=== PATIENT | male | born 1940 | race Caucasian/White ===

== ENCOUNTER 2023-09-30 19:33 | Observation (INO) ==
[2023-09-30 20:12] LABS: Basophils # (auto) 0.03 K/uL (0.00-0.20); Basophils % (auto) 0.4 %; Eosinophils # (auto) 0.82 K/uL (0.00-0.50); Eosinophils % (auto) 11.3 %; Hematocrit (blood only) 39.8 % (42.0-52.0); Hemoglobin 13.4 g/dl (14.0-18.0); Immature Granulocytes # (auto) 0.02 K/uL (0.01-0.20); Immature Granulocytes % (auto) 0.3 %; Lymphocytes # (auto) 1.56 K/uL (1.20-3.40); Lymphocytes % (auto) 21.5 %; Mean Corpuscular Hemoglobin 29.5 pg (25.0-34.0); Mean Corpuscular Hgb Conc 33.7 g/dL (32.0-36.0); Mean Corpuscular Volume 87.7 fL (80.0-100.0); Mean Platelet Volume 9.2 fL (9.4-12.4); Monocytes # (auto) 0.77 K/uL (0.11-0.59); Monocytes % (auto) 10.6 %; Neutrophils # (auto) 4.05 K/uL (1.40-6.50); Neutrophils % (auto) 55.9 %; Platelet Count 199 K/uL (130-400); RDW Coefficient of Variation 14.4 % (11.5-14.5); RDW Standard Deviation 46.1 fL (36.4-46.3); Red Blood Count 4.54 M/uL (4.70-6.10); White Blood Count 7.25 K/ul (4.8-10.8)
[2023-09-30] MEDS ORDERED: OPTIRAY 320 125ml IV ONE (20:22)
[2023-09-30 20:28] LABS: Albumin Globulin Ratio 1.4 (0.9-2); Albumin Level 4.1 gm/dl (3.4-5.0); BUN Creatinine Ratio 17.9 (10-20); Bilirubin,Total 0.3 mg/dl (0.2-1.0); Calcium 8.8 mg/dl (8.6-10.3); Creatinine Clr Calc Pharmacy 28.9 ml/min; Est GFR (African American) 30.7 ml/min; Est GFR (Non-African American) 26.5 ml/min; Potassium 3.3 mmol/L (3.5-5.1); Total Protein 7.1 gm/dl (6.0-8.3)
--- NOTE | 2023-09-30 20:34 | CT Scan Report ---
CT SCAN OF THE BRAIN WITHOUT IV CONTRAST CLINICAL HISTORY: Neurological deficit. Stroke like symptoms. COMPARISON STUDY: No priors. TECHNIQUE: Unenhanced axial CT scan of the brain is performed from the vertex to the skull base. A do se lowering technique was utilized adhering to the principles of ALARA. 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 There is no hemorrhage, mass effect, or evidence of acute territorial isc hemia by CT criteria. Hernandez-white matter differentiation is preserved. No extra-axial fluid collection is seen. Ventricles, sulci, cisterns: Prominent secondary to involutional change. Intracranial vasculature: There is atherosclerotic calcification of the cavernous carotid arteries. Calvarium: Unremarkable. Sinuses and mastoids: The visualized paranasal sinuses are clear. The mastoid air cells are well pneu matized. Orbits: The bony orbits are grossly intact. IMPRESSION: There is no hemorrhage, mass effect, or evidence of acute territorial ischemia by CT maria g ramos. ACT 112: Negative or not required by law. Electronically signed by: Nathan Linn M.D. 09/30/2023 8:33 PM
[2023-09-30 20:39] LABS: INR 0.9 (0.9-1.1); Partial Thromboplastin Time 27 Seconds (21-31); Prothrombin Time 10.4 Seconds (9.0-12.0)
--- NOTE | 2023-09-30 20:45 | CT Scan Report ---
CT ANGIOGRAM OF THE BRAIN; CT ANGIOGRAM OF THE NECK CLINICAL HISTORY: Neurological deficit. Stroke like symptoms. COMPARISON STUDY: Unenhanced CT of the brain performed concurrently on 09/30/2023. TECHNIQUE: Following the IV administration of 119 of Optiray 320, CT angiogram of the head and neck w as performed from the aortic arch to the vertex. Images are reviewed in the axial, sagittal, and tylor nal planes. 3-D MIPS images are created and assessed. IV contrast was administered without complicati on. All measurements were calculated based on NASCET criteria. A dose lowering technique was utilize d adhering to the principles of ALARA. 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 There is no evidence of hemorrhage, mass effect, or acute territorial isc hemia by CT criteria noting angiographic phase technique. There is no evidence of enhancing mass lesi on on the angiogram phase images. The ventricles, sulci, and cisterns are prominent secondary to surg ical change. Hernandez-white matter differentiation is preserved. No extra-axial fluid collection is seen. Thoracic aorta: There is mild atherosclerotic calcification of the thoracic aorta. Visualized portion s of the thoracic aorta are normal in caliber. The aortic arch demonstrates 3-vessel variant anatomy. There is a bovine arch, and the left vertebral artery arises directly from the thoracic aorta. Right carotid arterial system: The right common carotid artery is widely patent, as are the right int ernal and external carotid arteries. Calcified plaque is noted in the right carotid bulb and ICA. Left carotid arterial system: The left common carotid artery is widely patent, as is the left interna l carotid artery. Minimal plaque is seen in the carotid bulb. There is mild stenosis at the origin of the left external carotid artery. Vertebral arteries: The vertebral arteries are widely patent bilaterally and codominant. Subclavian arteries: Widely patent bilaterally. Intracranial vasculature: There is atherosclerotic calcification of the cavernous carotid arteries. T he internal carotid arteries are patent at the skull base, as are the anterior and middle cerebral ar teries bilaterally. The vertebrobasilar system and posterior cerebral arteries are widely patent. The vertebral arteries are codominant. There is no aneurysm, high-grade stenosis, or focal vessel cut of f seen throughout the intracranial circulation. Jugular veins: Patent bilaterally. Dural sinuses: Patent. Lung apices: Partially visualized upper lobe lung parenchyma appears clear. Soft tissues: The visualized pharyngeal soft tissues are normal in appearance noting angiographic pha se technique. The oropharyngeal airway appears widely patent. The salivary and thyroid glands are nor mal in appearance. No cervical lymphadenopathy is seen. Skeletal structures: The skeletal structures are osteopenic. The calvarium appears intact. The cervic al spine is maintained noting multilevel spondylosis. Orbits: The bony orbits are intact. Orbital contents are normal as visualized. Sinuses and mastoids: There is trace mucosal thickening in the right maxillary antrum. The remaining paranasal sinuses are clear. The mastoid air cells are well pneumatized. IMPRESSION: 1. There is no evidence of hemorrhage, mass effect, or acute territorial ischemia by CT criteria noti ng angiographic phase technique. 2. Unremarkable CT angiogram of the brain. 3. Unremarkable CT angiogram of the neck. ACT 112: Negative or not required by law. Electronically signed by: Nathan Linn M.D. 09/30/2023 8:43 PM
[2023-09-30] MEDS ORDERED: POTASSIUM CHLORIDE CRTAB 20 MEQ TABCR PO STA (22:23)
[2023-09-30] MEDS ORDERED: NSS + 20MEQ KCL 20 MEQ/1,000 ML BAG IV STA (22:28)
[2023-09-30 22:38] LABS: Appearance Urine Clear (Clear); Bilirubin Urine Negative (Negative); Blood Urine Negative (Negative); Color Urine Yellow; Glucose Urine UA 3+ (Negative); Ketones Urine Negative (Negative); Leukocyte Esterase Urine Negative (Negative); Nitrite Urine Negative (Negative); Protein Urine Negative (Negative); Specific Gravity Urine 1.033 (1.000-1.030); Urobilinogen Urine Negative (Negative)
--- NOTE | 2023-09-30 22:48 | Emergency Department Note ---
Impression & Plan Slurred speech, Decreased sensation, Generalized weakness ED Provider Note Diagnosis: Generalized weakness, slurred speech, decreased sensation Disposition: Admission CHIEF COMPLAINT: Generalized weakness HPI: Patient is an 83-year-old male presenting with generalized weakness. Patient states for the past 1 to 2 weeks time he has not felt himself. Patient states at times he feels lightheaded like he is going to pass out and the symptoms are intermittent. Patient states acutely at 6:30 PM this evening after dinner he developed slurred speech and the symptoms became worse of he describes dizziness which he states is lightheadedness. Patient denies any room spinning sensation. Patient has not any blood thinners except aspirin and has not had any previous strokes. Patient was originally seen in triage and workup was placed for near syncope generalized weakness and upon my evaluation due to the decrease sensation to the left arm left leg with acute slurred speech that started within 4 hours I activated a stroke alert. PAST MEDICAL HISTORY: See Below PAST SURGICAL HISTORY: See Below SOCIAL HISTORY: See Below HOME MEDICATIONS: See Below ALLERGIES: See Below VITALS: See Below PHYSICAL EXAMINATION: GENERAL: Well appearing, well nourished, NAD, non-toxic. EYE EXAM: Normal conjunctiva. OROPHARYNX: Moist mucus membranes. Grossly normal dentition. NECK: Supple, LUNGS: Clear to auscultation. Normal chest wall mechanics. HEART: NSR ABDOMEN: Abdomen soft, non-tender, normo-active bowel sounds, no masses, no rebound or guarding BACK: No CVA TTP. SKIN: No rashes and no bruising. UPPER EXTREMITIES: Upper extremities are grossly normal LOWER EXTREMITIES: Grossly normal, no edema. NEURO EXAM: A&O x3,, slurred speech, decreased sensation left arm and left leg, 5 out of 5 muscle strength upper and lower extremities bilaterally, no facial droop PSYCH: Cooperative MEDICAL DECISION MAKING: Reviewed external documents: History obtained from: Patient, ER Course: Patient is a 83-year-old male presenting with generalized weakness for 1 to 2 weeks time. Patient states he feels lightheaded like his can pass out at times. Patient states symptoms are intermittent. Patient states acutely at 6:30 PM this evening started with worsening generalized weakness lightheadedness as well as slurred speech and came in for further evaluation. Patient was seen in triage and initially window of symptoms was thought to be 1 to 2 weeks. I was asked to come evaluate the patient approximately 35 minutes into his stay and found that he did not have any muscle strength deficits however he did have left arm and left leg decree sensation as well as some lingering slurred speech but per the had improved. Patient was acutely activated as a stroke upon my assessment. Patient taken over to CAT scan and found to not have any intracranial hemorrhage or large vessel occlusions. Patient seen by her she neurology team on tele of visit. Due to patient's NIH being 2 and foggy story of when symptoms completely started neurologist does not recommend TNK at this time. Recommends admission to the hospital for further workup and potential MRI of the brain. Patient in agreement with this plan. Labs (independently interpreted) are significant for: No leukocytosis no significant electrolyte abnormalities Imaging results (independently interpreted): Chest x-ray clear EKG interpretation (independently interpreted): Sinus rhythm no ST segment elevation or depressions normal intervals, EKG bedside not in computer system yet Consultants: Telestroke team Claire, hospitalist. Triage Nursing notes reviewed and agree them. Vital Signs: reviewed and remarkable for: no significant abnormalities Past Med/Surg History Social History Smoking Status: Never smoker Preferred Language: Micronesian Feels Safe at Home: Yes Allergies Allergies Allergy/AdvReac Type Severity Reaction Status Date / Time codeine Allergy Swelling Verified 09/30/23 23:11 of Lip/Tongue/Throat Home Meds Home Medications Medication Instructions Recorded Confirmed lisdexamfetamine 70 mg capsule 70 mg PO QAM 08/27/20 09/30/23 (Vyvanse) alogliptin 12.5 mg tablet 6.25 mg PO DAILY 03/24/22 09/30/23 atorvastatin 80 mg tablet 80 mg PO DAILY 03/24/22 09/30/23 chlorthalidone 50 mg tablet 50 mg PO DAILY 03/24/22 09/30/23 empagliflozin 25 mg tablet 25 mg PO DAILY 03/24/22 09/30/23 glimepiride 2 mg tablet 2 mg PO DAILY 03/24/22 09/30/23 imatinib 400 mg tablet (Gleevec) 200 mg PO DAILY 03/24/22 09/30/23 pioglitazone 30 mg tablet 30 mg PO DAILY 03/24/22 09/30/23 allopurinol 100 mg tablet 100 mg PO DAILY 09/30/23 09/30/23 alprazolam 0.5 mg tablet 0.5 mg PO HS PRN Anxiety 09/30/23 09/30/23 dulaglutide 1.5 mg/0.5 mL 1.5 mg subcut WK 09/30/23 09/30/23 subcutaneous pen injector (Trulicity) losartan 25 mg tablet 25 mg PO DAILY 09/30/23 09/30/23 methylphenidate HCl 20 mg tablet 20 mg PO TID 09/30/23 09/30/23 sertraline 100 mg tablet 50 - 100 mg PO HS 09/30/23 09/30/23 trazodone 100 mg tablet 100 mg PO HS 09/30/23 09/30/23 Results & Data (ED) Vital Signs Vital Signs - 24 hr 09/30/23 19:39 09/30/23 20:24 09/30/23 20:37 Temperature 36.8 C Temperature Source Temporal Artery Scan Pulse Rate 87 70 Pulse Rate [Apical] 74 Pulse Rate from SpO2 Sensor Pulse Rhythm Regular Pulse Strength Normal Respiratory Rate 19 14 Respiratory Effort / Characteristics Non-Labored Spontaneous Non-Labored Spontaneous Respiratory Depth Normal Normal Respiratory Pattern Regular Blood Pressure 117/65 Blood Pressure [Right Arm] 126/58 L Blood Pressure Mean 82 Blood Pressure Mean [Right Arm] 80 Blood Pressure Position Sitting Pulse Oximetry 96 95 Oxygen Delivery Method Room Air Room Air Sepsis Recent Fever Within 48 Hours No Sepsis New/Unexplained Change in Mental Status N/A Sepsis Action Taken by Nursing No Action Required 09/30/23 20:37 09/30/23 21:00 09/30/23 21:30 Temperature Temperature Source Pulse Rate 66 74 70 Pulse Rate [Apical] Pulse Rate from SpO2 Sensor 66 73 68 Pulse Rhythm Pulse Strength Respiratory Rate 16 15 12 Respiratory Effort / Characteristics Respiratory Depth Respiratory Pattern Blood Pressure Blood Pressure [Right Arm] Blood Pressure Mean Blood Pressure Mean [Right Arm] Blood Pressure Position Pulse Oximetry 98 97 97 Oxygen Delivery Method Sepsis Recent Fever Within 48 Hours Sepsis New/Unexplained Change in Mental Status Sepsis Action Taken by Nursing 09/30/23 22:51 09/30/23 22:51 09/30/23 23:00 Temperature Temperature Source Pulse Rate 67 66 Pulse Rate [Apical] Pulse Rate from SpO2 Sensor 67 67 Pulse Rhythm Pulse Strength Respiratory Rate 13 12 Respiratory Effort / Characteristics Respiratory Depth Respiratory Pattern Blood Pressure 133/74 144/75 H Blood Pressure [Right Arm] Blood Pressure Mean 84 98 Blood Pressure Mean [Right Arm] Blood Pressure Position Pulse Oximetry 97 94 Oxygen Delivery Method Sepsis Recent Fever Within 48 Hours Sepsis New/Unexplained Change in Mental Status Sepsis Action Taken by Nursing 10/01/23 00:39 Temperature Temperature Source Pulse Rate 64 Pulse Rate [Apical] Pulse Rate from SpO2 Sensor Pulse Rhythm Pulse Strength Respiratory Rate Respiratory Effort / Characteristics Respiratory Depth Respiratory Pattern Blood Pressure Blood Pressure [Right Arm] Blood Pressure Mean Blood Pressure Mean [Right Arm] Blood Pressure Position Pulse Oximetry Oxygen Delivery Method Sepsis Recent Fever Within 48 Hours Sepsis New/Unexplained Change in Mental Status Sepsis Action Taken by Nursing Laboratory Data 10/01/23 00:37 09/30/23 19:55 Lab Results 09/30/23 09/30/23 09/30/23 Range/Units 19:55 19:55 19:55 WBC 7.25 (4.8-10.8) K/ul RBC 4.54 L (4.70-6.10) M/uL Hgb 13.4 L (14.0-18.0) g/dl Hct 39.8 L (42.0-52.0) % MCV 87.7 (80.0-100.0) fL MCH 29.5 (25.0-34.0) pg MCHC 33.7 (32.0-36.0) g/dL RDW Std Deviation 46.1 (36.4-46.3) fL RDW Coeff of Delaney 14.4 (11.5-14.5) % Plt Count 199 (130-400) K/uL MPV 9.2 L (9.4-12.4) fL Immature Gran % (Auto) 0.3 % Neut % (Auto) 55.9 % Lymph % (Auto) 21.5 % [facility] % (Auto) 10.6 % Eos % (Auto) 11.3 % Baso % (Auto) 0.4 % Neut # (Auto) 4.05 (1.40-6.50) K/uL Lymph # (Auto) 1.56 (1.20-3.40) K/uL [facility] # (Auto) 0.77 H (0.11-0.59) K/uL Eos # (Auto) 0.82 H (0.00-0.50) K/uL Baso # (Auto) 0.03 (0.00-0.20) K/uL Immature Gran # (Auto) 0.02 (0.01-0.20) K/uL PT 10.4 Cancelled (9.0-12.0) Seconds INR 0.9 Cancelled (0.9-1.1) APTT 27 (21-31) Seconds PTT Ratio 1.0 Sodium 132 L (136-145) mmol/L Potassium 3.3 L (3.5-5.1) mmol/L Chloride 99 (98-107) mmol/L Carbon Dioxide 24 (21-32) mmol/L Anion Gap 9 (3-11) BUN 40 H (6-23) mg/dl Creatinine 2.23 H (0.6-1.4) mg/dl Est Cr Clr Drug Dosing 28.9 ml/min Est GFR ( Amer) 30.7 ml/min Est GFR (Non-Af Amer) 26.5 ml/min BUN/Creatinine Ratio 17.9 (10-20) Glucose 283 H (70-99(Fasting)) mg/dl POC Glucose (70-99) mg/dl Calcium 8.8 (8.6-10.3) mg/dl Magnesium 2.4 (1.7-2.4) mg/dl Total Bilirubin 0.3 (0.2-1.0) mg/dl AST 21 (13-39) U/L ALT 17 (7-52) U/L Alkaline Phosphatase 58 (34-104) U/L Total Protein 7.1 (6.0-8.3) gm/dl Albumin 4.1 (3.4-5.0) gm/dl Globulin 3.0 (2.5-4.0) gm/dl Albumin/Globulin Ratio 1.4 (0.9-2) TSH 2.221 (0.300-4.500) uIu/ml Urine Color Urine Appearance (Clear) Urine pH (4.5-7.5) Ur Specific [place] (1.000-1.030) Urine Protein (Negative) Urine Glucose (UA) (Negative) Urine Ketones (Negative) Urine Blood (Negative) Urine Nitrite (Negative) Urine Bilirubin (Negative) Urine Urobilinogen (Negative) Ur Leukocyte Esterase (Negative) Blood Type Antibody Screen 09/30/23 09/30/23 09/30/23 Range/Units 20:24 20:27 Unknown WBC (4.8-10.8) K/ul RBC (4.70-6.10) M/uL Hgb (14.0-18.0) g/dl Hct (42.0-52.0) % MCV (80.0-100.0) fL MCH (25.0-34.0) pg MCHC (32.0-36.0) g/dL RDW Std Deviation (36.4-46.3) fL RDW Coeff of Delaney (11.5-14.5) % Plt Count (130-400) K/uL MPV (9.4-12.4) fL Immature Gran % (Auto) % Neut % (Auto) % Lymph % (Auto) % [facility] % (Auto) % Eos % (Auto) % Baso % (Auto) % Neut # (Auto) (1.40-6.50) K/uL Lymph # (Auto) (1.20-3.40) K/uL [facility] # (Auto) (0.11-0.59) K/uL Eos # (Auto) (0.00-0.50) K/uL Baso # (Auto) (0.00-0.20) K/uL Immature Gran # (Auto) (0.01-0.20) K/uL PT (9.0-12.0) Seconds INR (0.9-1.1) APTT (21-31) Seconds PTT Ratio Sodium (136-145) mmol/L Potassium (3.5-5.1) mmol/L Chloride (98-107) mmol/L Carbon Dioxide (21-32) mmol/L Anion Gap (3-11) BUN (6-23) mg/dl Creatinine (0.6-1.4) mg/dl Est Cr Clr Drug Dosing ml/min Est GFR ( Amer) ml/min Est GFR (Non-Af Amer) ml/min BUN/Creatinine Ratio (10-20) Glucose (70-99(Fasting)) mg/dl POC Glucose 247 H (70-99) mg/dl Calcium (8.6-10.3) mg/dl Magnesium (1.7-2.4) mg/dl Total Bilirubin (0.2-1.0) mg/dl AST (13-39) U/L ALT (7-52) U/L Alkaline Phosphatase (34-104) U/L Total Protein (6.0-8.3) gm/dl Albumin (3.4-5.0) gm/dl Globulin (2.5-4.0) gm/dl Albumin/Globulin Ratio (0.9-2) TSH (0.300-4.500) uIu/ml Urine Color Yellow Urine Appearance Clear (Clear) Urine pH 5.0 (4.5-7.5) Ur Specific [place] 1.033 H (1.000-1.030) Urine Protein Negative (Negative) Urine Glucose (UA) 3+ H (Negative) Urine Ketones Negative (Negative) Urine Blood Negative (Negative) Urine Nitrite Negative (Negative) Urine Bilirubin Negative (Negative) Urine Urobilinogen Negative (Negative) Ur Leukocyte Esterase Negative (Negative) Blood Type A Positive Antibody Screen NEGATIVE 10/01/23 Range/Units 00:37 WBC (4.8-10.8) K/ul RBC (4.70-6.10) M/uL Hgb 13.3 L (14.0-18.0) g/dl Hct 40.7 L (42.0-52.0) % MCV (80.0-100.0) fL MCH (25.0-34.0) pg MCHC (32.0-36.0) g/dL RDW Std Deviation (36.4-46.3) fL RDW Coeff of Delaney (11.5-14.5) % Plt Count (130-400) K/uL MPV (9.4-12.4) fL Immature Gran % (Auto) % Neut % (Auto) % Lymph % (Auto) % [facility] % (Auto) % Eos % (Auto) % Baso % (Auto) % Neut # (Auto) (1.40-6.50) K/uL Lymph # (Auto) (1.20-3.40) K/uL [facility] # (Auto) (0.11-0.59) K/uL Eos # (Auto) (0.00-0.50) K/uL Baso # (Auto) (0.00-0.20) K/uL Immature Gran # (Auto) (0.01-0.20) K/uL PT (9.0-12.0) Seconds INR (0.9-1.1) APTT (21-31) Seconds PTT Ratio Sodium (136-145) mmol/L Potassium (3.5-5.1) mmol/L Chloride (98-107) mmol/L Carbon Dioxide (21-32) mmol/L Anion Gap (3-11) BUN (6-23) mg/dl Creatinine (0.6-1.4) mg/dl Est Cr Clr Drug Dosing ml/min Est GFR ( Amer) ml/min Est GFR (Non-Af Amer) ml/min BUN/Creatinine Ratio (10-20) Glucose (70-99(Fasting)) mg/dl POC Glucose (70-99) mg/dl Calcium (8.6-10.3) mg/dl Magnesium (1.7-2.4) mg/dl Total Bilirubin (0.2-1.0) mg/dl AST (13-39) U/L ALT (7-52) U/L Alkaline Phosphatase (34-104) U/L Total Protein (6.0-8.3) gm/dl Albumin (3.4-5.0) gm/dl Globulin (2.5-4.0) gm/dl Albumin/Globulin Ratio (0.9-2) TSH (0.300-4.500) uIu/ml Urine Color Urine Appearance (Clear) Urine pH (4.5-7.5) Ur Specific [place] (1.000-1.030) Urine Protein (Negative) Urine Glucose (UA) (Negative) Urine Ketones (Negative) Urine Blood (Negative) Urine Nitrite (Negative) Urine Bilirubin (Negative) Urine Urobilinogen (Negative) Ur Leukocyte Esterase (Negative) Blood Type Antibody Screen Administered Medications Potassium Chloride/Sodium Chloride (Normal Saline W/20 Meq Kcl) 20 meq in 1,000 mls @ 50 mls/hr IV .Q20H STA; Protocol Stop: 10/01/23 18:27 Last Admin: 09/30/23 22:54 Dose: 50 mls/hr Documented By: BS Discontinued Medications Ioversol (Optiray 320 125ml) 119 ml IV ONCE ONE Stop: 09/30/23 20:23 Last Admin: 09/30/23 20:23 Dose: 119 ml Documented By: ANA Potassium Chloride (Potassium Chloride Crtab 20 Meq Tabcr) 40 meq PO NOW STA Stop: 09/30/23 22:24 Last Admin: 09/30/23 22:54 Dose: 40 meq Documented By: BS Imaging Data Radiologist's Impression: Head CT 09/30/23 20:12 CT SCAN OF THE BRAIN WITHOUT IV CONTRAST CLINICAL HISTORY: Neurological deficit. Stroke like symptoms. COMPARISON STUDY: No priors. TECHNIQUE: Unenhanced axial CT scan of the brain is performed from the vertex to the skull base. A dose lowering technique was utilized adhering to the principles of ALARA. CT DOSE: 1326.63 mGy.cm FINDINGS: Brain parenchyma: There is age-related involutional change noting mild subcortical and periventricular microangiopathic disease. There is no hemorrhage, mass effect, or evidence of acute territorial ischemia by CT criteria. Hernandez-white matter differentiation is preserved. No extra-axial fluid collection is seen. Ventricles, sulci, cisterns: Prominent secondary to involutional change. Intracranial vasculature: There is atherosclerotic calcification of the cavernous carotid arteries. Calvarium: Unremarkable. Sinuses and mastoids: The visualized paranasal sinuses are clear. The mastoid air cells are well pneumatized. Orbits: The bony orbits are grossly intact. IMPRESSION: There is no hemorrhage, mass effect, or evidence of acute territorial ischemia by CT criteria. ACT 112: Negative or not required by law. Electronically signed by: Nathan Linn M.D. 09/30/2023 8:33 PM Head CTA 09/30/23 20:12 CT ANGIOGRAM OF THE BRAIN; CT ANGIOGRAM OF THE NECK CLINICAL HISTORY: Neurological deficit. Stroke like symptoms. COMPARISON STUDY: Unenhanced CT of the brain performed concurrently on 09/30/2023. TECHNIQUE: Following the IV administration of 119 of Optiray 320, CT angiogram of the head and neck was performed from the aortic arch to the vertex. Images are reviewed in the axial, sagittal, and coronal planes. 3-D MIPS images are created and assessed. IV contrast was administered without complication. All measurements were calculated based on NASCET criteria. A dose lowering technique was utilized adhering to the principles of ALARA. FINDINGS: Brain parenchyma: There is age related involutional change noting mild subcortical and periventricular microangiopathic disease. There is no evidence of hemorrhage, mass effect, or acute territorial ischemia by CT criteria noting angiographic phase technique. There is no evidence of enhancing mass lesion on the angiogram phase images. The ventricles, sulci, and cisterns are prominent secondary to surgical change. Hernandez-white matter differentiation is preserved. No extra-axial fluid collection is seen. Thoracic aorta: There is mild atherosclerotic calcification of the thoracic aorta. Visualized portions of the thoracic aorta are normal in caliber. The aortic arch demonstrates 3-vessel variant anatomy. There is a bovine arch, and the left vertebral artery arises directly from the thoracic aorta. Right carotid arterial system: The right common carotid artery is widely patent, as are the right internal and external carotid arteries. Calcified plaque is noted in the right carotid bulb and ICA. Left carotid arterial system: The left common carotid artery is widely patent, as is the left internal carotid artery. Minimal plaque is seen in the carotid bulb. There is mild stenosis at the origin of the left external carotid artery. Vertebral arteries: The vertebral arteries are widely patent bilaterally and codominant. Subclavian arteries: Widely patent bilaterally. Intracranial vasculature: There is atherosclerotic calcification of the cavernous carotid arteries. The internal carotid arteries are patent at the skull base, as are the anterior and middle cerebral arteries bilaterally. The vertebrobasilar system and posterior cerebral arteries are widely patent. The vertebral arteries are codominant. There is no aneurysm, high-grade stenosis, or focal vessel cut off seen throughout the intracranial circulation. Jugular veins: Patent bilaterally. Dural sinuses: Patent. Lung apices: Partially visualized upper lobe lung parenchyma appears clear. Soft tissues: The visualized pharyngeal soft tissues are normal in appearance noting angiographic phase technique. The oropharyngeal airway appears widely patent. The salivary and thyroid glands are normal in appearance. No cervical lymphadenopathy is seen. Skeletal structures: The skeletal structures are osteopenic. The calvarium appears intact. The cervical spine is maintained noting multilevel spondylosis. Orbits: The bony orbits are intact. Orbital contents are normal as visualized. Sinuses and mastoids: There is trace mucosal thickening in the right maxillary antrum. The remaining paranasal sinuses are clear. The mastoid air cells are well pneumatized. IMPRESSION: 1. There is no evidence of hemorrhage, mass effect, or acute territorial ischemia by CT criteria noting angiographic phase technique. 2. Unremarkable CT angiogram of the brain. 3. Unremarkable CT angiogram of the neck. ACT 112: Negative or not required by law. Electronically signed by: Nathan Linn M.D. 09/30/2023 8:43 PM Neck CTA 09/30/23 20:12 CT ANGIOGRAM OF THE BRAIN; CT ANGIOGRAM OF THE NECK CLINICAL HISTORY: Neurological deficit. Stroke like symptoms. COMPARISON STUDY: Unenhanced CT of the brain performed concurrently on 09/30/2023. TECHNIQUE: Following the IV administration of 119 of Optiray 320, CT angiogram of the head and neck was performed from the aortic arch to the vertex. Images are reviewed in the axial, sagittal, and coronal planes. 3-D MIPS images are created and assessed. IV contrast was administered without complication. All measurements were calculated based on NASCET criteria. A dose lowering technique was utilized adhering to the principles of ALARA. FINDINGS: Brain parenchyma: There is age related involutional change noting mild subcortical and periventricular microangiopathic disease. There is no evidence of hemorrhage, mass effect, or acute territorial ischemia by CT criteria noting angiographic phase technique. There is no evidence of enhancing mass lesion on the angiogram phase images. The ventricles, sulci, and cisterns are prominent secondary to surgical change. Hernandez-white matter differentiation is preserved. No extra-axial fluid collection is seen. Thoracic aorta: There is mild atherosclerotic calcification of the thoracic aorta. Visualized portions of the thoracic aorta are normal in caliber. The aortic arch demonstrates 3-vessel variant anatomy. There is a bovine arch, and the left vertebral artery arises directly from the thoracic aorta. Right carotid arterial system: The right common carotid artery is widely patent, as are the right internal and external carotid arteries. Calcified plaque is noted in the right carotid bulb and ICA. Left carotid arterial system: The left common carotid artery is widely patent, as is the left internal carotid artery. Minimal plaque is seen in the carotid bulb. There is mild stenosis at the origin of the left external carotid artery. Vertebral arteries: The vertebral arteries are widely patent bilaterally and codominant. Subclavian arteries: Widely patent bilaterally. Intracranial vasculature: There is atherosclerotic calcification of the cavernous carotid arteries. The internal carotid arteries are patent at the skull base, as are the anterior and middle cerebral arteries bilaterally. The vertebrobasilar system and posterior cerebral arteries are widely patent. The vertebral arteries are codominant. There is no aneurysm, high-grade stenosis, or focal vessel cut off seen throughout the intracranial circulation. Jugular veins: Patent bilaterally. Dural sinuses: Patent. Lung apices: Partially visualized upper lobe lung parenchyma appears clear. Soft tissues: The visualized pharyngeal soft tissues are normal in appearance noting angiographic phase technique. The oropharyngeal airway appears widely patent. The salivary and thyroid glands are normal in appearance. No cervical lymphadenopathy is seen. Skeletal structures: The skeletal structures are osteopenic. The calvarium appears intact. The cervical spine is maintained noting multilevel spondylosis. Orbits: The bony orbits are intact. Orbital contents are normal as visualized. Sinuses and mastoids: There is trace mucosal thickening in the right maxillary antrum. The remaining paranasal sinuses are clear. The mastoid air cells are well pneumatized. IMPRESSION: 1. There is no evidence of hemorrhage, mass effect, or acute territorial ischemia by CT criteria noting angiographic phase technique. 2. Unremarkable CT angiogram of the brain. 3. Unremarkable CT angiogram of the neck. ACT 112: Negative or not required by law. Electronically signed by: Nathan Linn M.D. 09/30/2023 8:43 PM Discharge Plan Visit Data Chief Complaint: Vertigo Stated Complaint: LIGHTHEADED,NEAR SYNCOPE,DIZZY ED Provider: Jacob Durant Discharge Problem: Slurred speech, Decreased sensation, Generalized weakness Forms Stand Alone Forms: [facility] Prescriptions Prescriptions: No Action empagliflozin 25 mg tablet 25 mg PO DAILY glimepiride 2 mg tablet 2 mg PO DAILY pioglitazone 30 mg tablet 30 mg PO DAILY atorvastatin 80 mg tablet 80 mg PO DAILY lisdexamfetamine [Vyvanse] 70 mg capsule 70 mg PO QAM Rx Instructions: 09/30/23 : PT REPORTS HE HAS NOT BEEN ABLE TO GET THIS MED AT HIS LOCAL PHARMACY. HIS DOCTOR SUBSTITUTED METHYLPHENIDATE WHICH HE HAS NOT TAKEN IN APPROX ONE WEEK. alogliptin 12.5 mg tablet 6.25 mg PO DAILY imatinib [Gleevec] 400 mg tablet 200 mg PO DAILY Rx Instructions: 1/2 TABLET DAILY chlorthalidone 50 mg tablet 50 mg PO DAILY methylphenidate HCl 20 mg tablet 20 mg PO TID Rx Instructions: 09/30/23 PT REPORTS HE HAS NOT TAKEN ANY OF THIS MED IN APPROX ONE WEEK. Trulicity 1.5 mg/0.5 mL pen injector 1.5 mg SUBCUT WK Rx Instructions: TAKE THIS MED EVERY WEDNESDAY alprazolam 0.5 mg tablet 0.5 mg PO HS PRN (Reason: Anxiety) sertraline 100 mg tablet 50 - 100 mg PO HS trazodone 100 mg tablet 100 mg PO HS allopurinol 100 mg tablet 100 mg PO DAILY losartan 25 mg tablet 25 mg PO DAILY Referrals Referrals: Dami Victoria PA-C [Primary Care Provider] -
[2023-09-30 22:55] LABS: Magnesium 2.4 mg/dl (1.7-2.4)
[2023-09-30 23:11] LABS: Thyroid Stimulating Hormone 2.221 uIu/ml (0.300-4.500)
--- NOTE | 2023-09-30 23:54 | History & Physical Report ---
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 prostate cancer status post surgery ADHD, somewhat suboptimal, missed medications, patient verbalizing anger, irritability, dissociative symptoms anxiety/mood disorder Hypokalemia secondary to glyburide New onset anemia possibly from recent epistaxis episodes OBS Medical telemetry Neurochecks Aspirin for stroke prevention if H&H stable given new onset anemia and recent epistaxis episode MRI brain, TTE for stroke workup Neurology consult contingent on MRI results Permissive hypertension until acute stroke ruled out Check orthostatic vitals, IVF for now Psychiatry consult Re: Anger, irritability, dissociative symptoms, history ADHD Basal bolus insulin, ISS BG goal 1 10-1 40, carb count coverage Replace potassium DVT prophylaxis. SCDs Re: Recent epistaxis episode Full code Patient requesting updates providers. Ms. Ranjana Peña, contact #[phone]. Text document was generated using [employer] voice recognition software. It may contain grammatical or spelling errors. Kindly contact undersigned for clarification of any documentation item in question. History of Present Illness Chief Complaint: Strokelike symptoms Primary Care Provider: Dami Victoria PA-C History obtained from patient, family, and records. Medical history significant for hypertension, hyperlipidemia, PVD, DM2 on oral medications, CRI (baseline creatinine 2s), CML on Gleevec, prostate cancer status post surgery, ADHD, anxiety/mood disorder. Patient has not been feeling well the last couple of months. Feeling off, feelings of easy irritability and anger. Denies unusual depression or suicidality. Patient having feelings of "being an observer." Patient unable to take ADHD medication (Ritalin or Vyvanse) for about 3 weeks due to medication unavailability. Recently procured both medications the last couple of days. Patient restarted Ritalin 2 days ago. Ritalin works better for his ADHD as per . Patient with intermittent episodes of lightheadedness last couple of weeks. Feels like he is going to pass out. No headache, no chest pain, no SOB. Transient epistaxis episodes 2 days ago. Transient numbness of the left upper extremity noted 2 days ago as well. No neck pain complaints. Few hours ago, patient noted to have transient slurred speech at home as per . No previous episodes. Patient took aspirin at home. Symptoms currently resolved. 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 Allergies Allergy/AdvReac Type Severity Reaction Status Date / Time codeine Allergy Swelling Verified 09/30/23 23:11 of Lip/Tongue/Throat Home Medications Medication Instructions Recorded Confirmed Type lisdexamfetamine 70 mg capsule 70 mg PO QAM 08/27/20 09/30/23 History (Yudith) alogliptin 12.5 mg tablet 6.25 mg PO DAILY 03/24/22 09/30/23 History atorvastatin 80 mg tablet 80 mg PO DAILY 03/24/22 09/30/23 History chlorthalidone 50 mg tablet 50 mg PO DAILY 03/24/22 09/30/23 History empagliflozin 25 mg tablet 25 mg PO DAILY 03/24/22 09/30/23 History glimepiride 2 mg tablet 2 mg PO DAILY 03/24/22 09/30/23 History imatinib 400 mg tablet (Gleevec) 200 mg PO DAILY 03/24/22 09/30/23 History pioglitazone 30 mg tablet 30 mg PO DAILY 03/24/22 09/30/23 History allopurinol 100 mg tablet 100 mg PO DAILY 09/30/23 09/30/23 History alprazolam 0.5 mg tablet 0.5 mg PO HS PRN Anxiety 09/30/23 09/30/23 History dulaglutide 1.5 mg/0.5 mL 1.5 mg subcut WK 09/30/23 09/30/23 History subcutaneous pen injector (Trulicity) losartan 25 mg tablet 25 mg PO DAILY 09/30/23 09/30/23 History methylphenidate HCl 20 mg tablet 20 mg PO TID 09/30/23 09/30/23 History sertraline 100 mg tablet 50 - 100 mg PO HS 09/30/23 09/30/23 History trazodone 100 mg tablet 100 mg PO HS 09/30/23 09/30/23 History Past Med/Surg History Social History Smoking Status: Never smoker Preferred Language: Beninese Feels Safe at Home: Yes Review of Systems Review of Systems: As per HPI, all other systems reviewed and negative Physical Exam Physical Exam: GENERAL: Comfortable, slightly anxious, slightly hard of hearing, no respiratory distress SKIN: Normal color, warm HEENT: Partial alopecia, [place] palpebral conjunctivae, no ptosis, dry buccal mucosa NECK : Supple, no tenderness CHEST : CTA, no tenderness HEART : RRR, no obvious murmurs ABDOMEN: Some distention, nontender EXTREMITIES : No LE swelling/tenderness, no other conspicuous deformities noted NEUROLOGIC : Coherent, no facial asymmetry, slightly hard of hearing, no pronator drift, gait and stance not assessed Results & Data Results & Data Vital Signs (Past 12 Hours) Vital Signs Temp Pulse Pulse Resp BP BP Pulse Ox 09/30/23 23:00 66 12 144/75 H 94 09/30/23 22:51 133/74 09/30/23 22:51 67 13 97 09/30/23 21:30 70 12 97 09/30/23 21:00 74 15 97 09/30/23 20:37 66 16 98 09/30/23 20:37 70 09/30/23 20:24 74 14 126/58 L 95 09/30/23 19:39 36.8 C 87 19 117/65 96 O2 Del Method 09/30/23 23:00 09/30/23 22:51 09/30/23 22:51 09/30/23 21:30 09/30/23 21:00 09/30/23 20:37 09/30/23 20:37 09/30/23 20:24 Room Air 09/30/23 19:39 Room Air Laboratory Results Laboratory Results WBC 7.25 K/ul (4.8-10.8) 09/30/23 19:55 RBC 4.54 M/uL (4.70-6.10) L 09/30/23 19:55 Hgb 13.4 g/dl (14.0-18.0) L 09/30/23 19:55 Hct 39.8 % (42.0-52.0) L 09/30/23 19:55 MCV 87.7 fL (80.0-100.0) 09/30/23 19:55 MCH 29.5 pg (25.0-34.0) 09/30/23 19:55 MCHC 33.7 g/dL (32.0-36.0) 09/30/23 19:55 RDW Std Deviation 46.1 fL (36.4-46.3) 09/30/23 19:55 RDW Coeff of Delaney 14.4 % (11.5-14.5) 09/30/23 19:55 Plt Count 199 K/uL (130-400) 09/30/23 19:55 MPV 9.2 fL (9.4-12.4) L 09/30/23 19:55 Immature Gran % (Auto) 0.3 % 09/30/23 19:55 Neut % (Auto) 55.9 % 09/30/23 19:55 Lymph % (Auto) 21.5 % 09/30/23 19:55 [place] % (Auto) 10.6 % 09/30/23 19:55 Eos % (Auto) 11.3 % 09/30/23 19:55 Baso % (Auto) 0.4 % 09/30/23 19:55 Neut # (Auto) 4.05 K/uL (1.40-6.50) 09/30/23 19:55 Lymph # (Auto) 1.56 K/uL (1.20-3.40) 09/30/23 19:55 [place] # (Auto) 0.77 K/uL (0.11-0.59) H 09/30/23 19:55 Eos # (Auto) 0.82 K/uL (0.00-0.50) H 09/30/23 19:55 Baso # (Auto) 0.03 K/uL (0.00-0.20) 09/30/23 19:55 Immature Gran # (Auto) 0.02 K/uL (0.01-0.20) 09/30/23 19:55 PT 10.4 Seconds (9.0-12.0) 09/30/23 19:55 PT Cancelled 09/30/23 19:55 INR 0.9 (0.9-1.1) 09/30/23 19:55 INR Cancelled 09/30/23 19:55 APTT 27 Seconds (21-31) 09/30/23 19:55 PTT Ratio 1.0 09/30/23 19:55 Sodium 132 mmol/L (136-145) L 09/30/23 19:55 Potassium 3.3 mmol/L (3.5-5.1) L 09/30/23 19:55 Chloride 99 mmol/L (98-107) 09/30/23 19:55 Carbon Dioxide 24 mmol/L (21-32) 09/30/23 19:55 Anion Gap 9 (3-11) 09/30/23 19:55 BUN 40 mg/dl (6-23) H 09/30/23 19:55 Creatinine 2.23 mg/dl (0.6-1.4) H 09/30/23 19:55 Est Cr Clr Drug Dosing 28.9 ml/min 09/30/23 19:55 Est GFR ( Amer) 30.7 ml/min 09/30/23 19:55 Est GFR (Non-Af Amer) 26.5 ml/min 09/30/23 19:55 BUN/Creatinine Ratio 17.9 (10-20) 09/30/23 19:55 Glucose 283 mg/dl (70-99(Fasting)) H 09/30/23 19:55 POC Glucose 247 mg/dl (70-99) H 09/30/23 20:27 Calcium 8.8 mg/dl (8.6-10.3) 09/30/23 19:55 Magnesium 2.4 mg/dl (1.7-2.4) 09/30/23 19:55 Total Bilirubin 0.3 mg/dl (0.2-1.0) 09/30/23 19:55 AST 21 U/L (13-39) 09/30/23 19:55 ALT 17 U/L (7-52) 09/30/23 19:55 Alkaline Phosphatase 58 U/L (34-104) 09/30/23 19:55 Total Protein 7.1 gm/dl (6.0-8.3) 09/30/23 19:55 Albumin 4.1 gm/dl (3.4-5.0) 09/30/23 19:55 Globulin 3.0 gm/dl (2.5-4.0) 09/30/23 19:55 Albumin/Globulin Ratio 1.4 (0.9-2) 09/30/23 19:55 TSH 2.221 uIu/ml (0.300-4.500) 09/30/23 19:55 Urine Color Yellow 09/30/23 Unknown Urine Appearance Clear (Clear) 09/30/23 Unknown Urine pH 5.0 (4.5-7.5) 09/30/23 Unknown Ur Specific [place] 1.033 (1.000-1.030) H 09/30/23 Unknown Urine Protein Negative (Negative) 09/30/23 Unknown Urine Glucose (UA) 3+ (Negative) H 09/30/23 Unknown Urine Ketones Negative (Negative) 09/30/23 Unknown Urine Blood Negative (Negative) 09/30/23 Unknown Urine Nitrite Negative (Negative) 09/30/23 Unknown Urine Bilirubin Negative (Negative) 09/30/23 Unknown Urine Urobilinogen Negative (Negative) 09/30/23 Unknown Ur Leukocyte Esterase Negative (Negative) 09/30/23 Unknown Blood Type A Positive 09/30/23 20:24 Antibody Screen NEGATIVE 09/30/23 20:[address] 09/30/23 20:12 CT SCAN OF THE BRAIN WITHOUT IV CONTRAST CLINICAL HISTORY: Neurological deficit. Stroke like symptoms. COMPARISON STUDY: No priors. TECHNIQUE: Unenhanced axial CT scan of the brain is performed from the vertex to the skull base. A dose lowering technique was utilized adhering to the principles of ALARA. CT DOSE: 1326.63 mGy.cm FINDINGS: Brain parenchyma: There is age-related involutional change noting mild subcortical and periventricular microangiopathic disease. There is no hemorrhage, mass effect, or evidence of acute territorial ischemia by CT criteria. Hernandez-white matter differentiation is preserved. No extra-axial fluid collection is seen. Ventricles, sulci, cisterns: Prominent secondary to involutional change. Intracranial vasculature: There is atherosclerotic calcification of the cavernous carotid arteries. Calvarium: Unremarkable. Sinuses and mastoids: The visualized paranasal sinuses are clear. The mastoid air cells are well pneumatized. Orbits: The bony orbits are grossly intact. IMPRESSION: There is no hemorrhage, mass effect, or evidence of acute territorial ischemia by CT criteria. ACT 112: Negative or not required by law. Electronically signed by: Nathan Linn M.D. 09/30/2023 8:33 PM Head CTA 09/30/23 20:12 CT ANGIOGRAM OF THE BRAIN; CT ANGIOGRAM OF THE NECK CLINICAL HISTORY: Neurological deficit. Stroke like symptoms. COMPARISON STUDY: Unenhanced CT of the brain performed concurrently on 09/30/2023. TECHNIQUE: Following the IV administration of 119 of Optiray 320, CT angiogram of the head and neck was performed from the aortic arch to the vertex. Images are reviewed in the axial, sagittal, and coronal planes. 3-D MIPS images are created and assessed. IV contrast was administered without complication. All measurements were calculated based on NASCET criteria. A dose lowering technique was utilized adhering to the principles of ALARA. FINDINGS: Brain parenchyma: There is age related involutional change noting mild subcortical and periventricular microangiopathic disease. There is no evidence of hemorrhage, mass effect, or acute territorial ischemia by CT criteria noting angiographic phase technique. There is no evidence of enhancing mass lesion on the angiogram phase images. The ventricles, sulci, and cisterns are prominent secondary to surgical change. Hernandez-white matter differentiation is preserved. No extra-axial fluid collection is seen. Thoracic aorta: There is mild atherosclerotic calcification of the thoracic aorta. Visualized portions of the thoracic aorta are normal in caliber. The aortic arch demonstrates 3-vessel variant anatomy. There is a bovine arch, and the left vertebral artery arises directly from the thoracic aorta. Right carotid arterial system: The right common carotid artery is widely patent, as are the right internal and external carotid arteries. Calcified plaque is noted in the right carotid bulb and ICA. Left carotid arterial system: The left common carotid artery is widely patent, as is the left internal carotid artery. Minimal plaque is seen in the carotid bulb. There is mild stenosis at the origin of the left external carotid artery. Vertebral arteries: The vertebral arteries are widely patent bilaterally and codominant. Subclavian arteries: Widely patent bilaterally. Intracranial vasculature: There is atherosclerotic calcification of the cavernous carotid arteries. The internal carotid arteries are patent at the skull base, as are the anterior and middle cerebral arteries bilaterally. The vertebrobasilar system and posterior cerebral arteries are widely patent. The vertebral arteries are codominant. There is no aneurysm, high-grade stenosis, or focal vessel cut off seen throughout the intracranial circulation. Jugular veins: Patent bilaterally. Dural sinuses: Patent. Lung apices: Partially visualized upper lobe lung parenchyma appears clear. Soft tissues: The visualized pharyngeal soft tissues are normal in appearance noting angiographic phase technique. The oropharyngeal airway appears widely patent. The salivary and thyroid glands are normal in appearance. No cervical lymphadenopathy is seen. Skeletal structures: The skeletal structures are osteopenic. The calvarium appears intact. The cervical spine is maintained noting multilevel spondylosis. Orbits: The bony orbits are intact. Orbital contents are normal as visualized. Sinuses and mastoids: There is trace mucosal thickening in the right maxillary antrum. The remaining paranasal sinuses are clear. The mastoid air cells are well pneumatized. IMPRESSION: 1. There is no evidence of hemorrhage, mass effect, or acute territorial ischemia by CT criteria noting angiographic phase technique. 2. Unremarkable CT angiogram of the brain. 3. Unremarkable CT angiogram of the neck. ACT 112: Negative or not required by law. Electronically signed by: Nathan Linn M.D. 09/30/2023 8:43 PM Neck CTA 09/30/23 20:12 CT ANGIOGRAM OF THE BRAIN; CT ANGIOGRAM OF THE NECK CLINICAL HISTORY: Neurological deficit. Stroke like symptoms. COMPARISON STUDY: Unenhanced CT of the brain performed concurrently on 09/30/2023. TECHNIQUE: Following the IV administration of 119 of Optiray 320, CT angiogram of the head and neck was performed from the aortic arch to the vertex. Images are reviewed in the axial, sagittal, and coronal planes. 3-D MIPS images are created and assessed. IV contrast was administered without complication. All measurements were calculated based on NASCET criteria. A dose lowering technique was utilized adhering to the principles of ALARA. FINDINGS: Brain parenchyma: There is age related involutional change noting mild subcortical and periventricular microangiopathic disease. There is no evidence of hemorrhage, mass effect, or acute territorial ischemia by CT criteria noting angiographic phase technique. There is no evidence of enhancing mass lesion on the angiogram phase images. The ventricles, sulci, and cisterns are prominent secondary to surgical change. Hernandez-white matter differentiation is preserved. No extra-axial fluid collection is seen. Thoracic aorta: There is mild atherosclerotic calcification of the thoracic aorta. Visualized portions of the thoracic aorta are normal in caliber. The aortic arch demonstrates 3-vessel variant anatomy. There is a bovine arch, and the left vertebral artery arises directly from the thoracic aorta. Right carotid arterial system: The right common carotid artery is widely patent, as are the right internal and external carotid arteries. Calcified plaque is noted in the right carotid bulb and ICA. Left carotid arterial system: The left common carotid artery is widely patent, as is the left internal carotid artery. Minimal plaque is seen in the carotid bulb. There is mild stenosis at the origin of the left external carotid artery. Vertebral arteries: The vertebral arteries are widely patent bilaterally and codominant. Subclavian arteries: Widely patent bilaterally. Intracranial vasculature: There is atherosclerotic calcification of the cavernous carotid arteries. The internal carotid arteries are patent at the skull base, as are the anterior and middle cerebral arteries bilaterally. The vertebrobasilar system and posterior cerebral arteries are widely patent. The vertebral arteries are codominant. There is no aneurysm, high-grade stenosis, or focal vessel cut off seen throughout the intracranial circulation. Jugular veins: Patent bilaterally. Dural sinuses: Patent. Lung apices: Partially visualized upper lobe lung parenchyma appears clear. Soft tissues: The visualized pharyngeal soft tissues are normal in appearance noting angiographic phase technique. The oropharyngeal airway appears widely patent. The salivary and thyroid glands are normal in appearance. No cervical lymphadenopathy is seen. Skeletal structures: The skeletal structures are osteopenic. The calvarium appears intact. The cervical spine is maintained noting multilevel spondylosis. Orbits: The bony orbits are intact. Orbital contents are normal as visualized. Sinuses and mastoids: There is trace mucosal thickening in the right maxillary antrum. The remaining paranasal sinuses are clear. The mastoid air cells are well pneumatized. IMPRESSION: 1. There is no evidence of hemorrhage, mass effect, or acute territorial ischemia by CT criteria noting angiographic phase technique. 2. Unremarkable CT angiogram of the brain. 3. Unremarkable CT angiogram of the neck. ACT 112: Negative or not required by law. Electronically signed by: Nathan Linn M.D. 09/30/2023 8:43 PM Diagnostic Findings Chest x-ray as per my interpretation atelectasis, cardiomegaly EKG as per my interpretation : Rate 75, NSR, normal axis, septal infarct, T wave flattening inferior leads
[2023-10-01 00:46] LABS: Hematocrit (blood only) 40.7 % (42.0-52.0); Hemoglobin 13.3 g/dl (14.0-18.0)
[2023-10-01 01:21] LABS: Lyme Ab IgG w/WB Rflx Negative (Negative); Lyme Ab IgM w/WB Rflx Negative (Negative)
[2023-10-01] MEDS ORDERED: GLUCAGON FOR INJ 1 MG VIAL SQ PRN (01:42)
[2023-10-01] MEDS ORDERED: GLUCOSE 10 TAB/TUBE PO PRN (01:42)
[2023-10-01] MEDS ORDERED: PHARMACIST DISCHARGE MED REC CONSULT PRN (01:42)
[2023-10-01] MEDS ORDERED: GLUCOSE 40% GEL 15 GM TUBE PO PRN (01:42)
[2023-10-01] MEDS ORDERED: ACETAMINOPHEN 325 MG TAB PO PRN (01:42)
[2023-10-01] MEDS ORDERED: ALPRAZolam 0.5 MG TABLET PO PRN (01:42)
[2023-10-01] MEDS ORDERED: LANTUS PER UNIT CHARGE SQ STA (01:42)
[2023-10-01] MEDS ORDERED: CARBOHYDRATES FOR HYPOGLYCEMIA PO PRN (01:42)
[2023-10-01] MEDS ORDERED: DEXTROSE 50% 50 ML SYRINGE IV PRN (01:42)
[2023-10-01] MEDS: INSULIN ASPART PER UNIT CHARGE SC SCH ×5 (02:18→20:41)
--- NOTE | 2023-10-01 05:52 | Magnetic Resonance Report ---
Exam(s): MRI HEAD Without Contrast EXAM: MR Head Without Intravenous Contrast CLINICAL HISTORY: Reason for exam: tia. TECHNIQUE: Magnetic resonance images of the head/brain without intravenous contrast in multiple planes. COMPARISON: No relevant prior studies available. FINDINGS: Brain: Remote ischemic injury of the right cerebellum. Minimal nonspecific white matter changes. The flow voids at the base of the brain are intact. No mass. No hemorrhage. No acute infarct. Ventricles: Mild ventriculomegaly. 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 No acute fracture. Sinuses: Chronic ethmoid sinusitis. No acute sinusitis. Mastoid air cells: Unremarkable as visualized. No mastoid effusion. Orbits: Unremarkable as visualized. IMPRESSION: No evidence of acute intracranial pathology. Minimal nonspecific white matter changes. Critical spinal canal stenosis at C2-3 and C3-4. Recommend MRI of the cervical spine to evaluate for myelopathy. Communications: Verify Receipt Electronically signed by: Mireya Da Silva MD 10/01/23 05:50 AM
[2023-10-01 06:20] LABS: Basophils # (auto) 0.03 K/uL (0.00-0.20); Basophils % (auto) 0.4 %; Eosinophils # (auto) 0.68 K/uL (0.00-0.50); Eosinophils % (auto) 9.6 %; Hematocrit (blood only) 37.4 % (42.0-52.0); Hemoglobin 12.4 g/dl (14.0-18.0); Immature Granulocytes # (auto) 0.02 K/uL (0.01-0.20); Immature Granulocytes % (auto) 0.3 %; Lymphocytes # (auto) 1.23 K/uL (1.20-3.40); Lymphocytes % (auto) 17.3 %; Mean Corpuscular Hemoglobin 29.7 pg (25.0-34.0); Mean Corpuscular Hgb Conc 33.2 g/dL (32.0-36.0); Mean Corpuscular Volume 89.5 fL (80.0-100.0); Mean Platelet Volume 9.5 fL (9.4-12.4); Monocytes # (auto) 0.75 K/uL (0.11-0.59); Monocytes % (auto) 10.6 %; Neutrophils # (auto) 4.38 K/uL (1.40-6.50); Neutrophils % (auto) 61.8 %; Platelet Count 185 K/uL (130-400); RDW Coefficient of Variation 14.3 % (11.5-14.5); RDW Standard Deviation 46.9 fL (36.4-46.3); Red Blood Count 4.18 M/uL (4.70-6.10); White Blood Count 7.09 K/ul (4.8-10.8)
[2023-10-01 06:41] LABS: BUN Creatinine Ratio 19.8 (10-20); Calcium 8.6 mg/dl (8.6-10.3); Creatinine Clr Calc Pharmacy 31.8 ml/min; Est GFR (African American) 34.6 ml/min; Est GFR (Non-African American) 29.8 ml/min; Potassium 3.5 mmol/L (3.5-5.1)
--- NOTE | 2023-10-01 08:30 | XRay Report ---
SINGLE VIEW CHEST CLINICAL HISTORY: Neurologic deficit. Stroke like symptoms FINDINGS: An AP, portable, upright chest radiograph is obtained. No prior studies are available for c omparison at the time of dictation. The heart is enlarged. The pulmonary vasculature is noncongested. There is bibasilar scarring/atelectasis. The lungs and pleural spaces are otherwise clear. No pneumo thorax is seen. The skeletal structures are osteopenic. The bony thorax is grossly intact. IMPRESSION: Cardiomegaly with no active disease in the chest. ACT 112: Negative or not required by law. Electronically signed by: Nathan Linn M.D. 10/01/2023 8:28 AM
[2023-10-01] MEDS: allopurinoL 100 MG TAB PO SCH (09:35)
[2023-10-01] MEDS: ASPIRIN 81 MG ECTAB PO SCH (09:35)
[2023-10-01] MEDS: SERTRALINE HCL 100 MG TABLET PO SCH (09:35)
[2023-10-01] MEDS: ATORVASTATIN 40 MG TAB PO SCH (09:35)
[2023-10-01] MEDS: METHYLPHENIDATE HCL 10 MG TABLET PO SCH (09:41)
--- NOTE | 2023-10-01 10:30 | Pharmacy Report ---
- Date of Service October 01, 2023 - Pharmacy CVA/TIA Medication Review Medications to Prevent Stroke handout has been added to the patients discharge packet. Antiplatelet(s) * Aspirin 81 mg PO daily Cholesterol * High intensity statin: atorvastatin 80 mg daily DVT Prophylaxis * SCD knee Therapeutic Anticoagulation * No history of Afib/Aflutter noted Type 2 Diabetes * Patient has T2DM and patient is prescribed dulaglutide and empagliflozin. * "Medications to prevent stroke" handout has already been added to the patient's discharge packet.
--- NOTE | 2023-10-01 10:49 | Magnetic Resonance Report ---
MRI OF THE CERVICAL SPINE WITHOUT IV CONTRAST CLINICAL HISTORY: Spinal stenosis. COMPARISON STUDY: CT angiogram of the neck dated 09/30/2023. MRI of the brain dated 10/01/2023. TECHNIQUE: MRI of the cervical spine is performed utilizing various T1 and T2-weighted sequences in t he axial and sagittal planes. IV contrast was not administered for this examination. FINDINGS: Cervical spine: Vertebral body height and alignment are maintained throughout the cervical spine. The atlantodental articulation is maintained. The spinous processes appear intact. Anterior osteophytes are seen throughout. No destructive bony lesion is seen. Chronic degenerative endplate change is seen at several levels, greatest at C2-C3 and C6-C7. Intervertebral discs: Disc desiccation and loss of height is seen throughout the cervical spine. Loss of height is moderate at C6-C7 and mild at the remaining cervical levels. Spinal cord: The cervical cord is normal in morphology and signal intensity. C2-C3: A posterior disc osteophyte complex, eccentric to the left effaces the ventral cord. The minim um AP canal diameter at this level measures 8 mm. There is left lateral disc bulge. In conjunction wi th facet arthropathy, there is severe left neural foraminal stenosis with probable impingement on the exiting left C3 nerve root. Uncovertebral and facet arthropathy contribute to mild neural foraminal narrowing on the right. C3-C4: There is a large posterior disc extrusion, eccentric to the right. This effaces the right aspe ct of the cord. The minimum AP canal diameter at this level measures 6 mm. Right lateral disc bulge a nd facet arthropathy contribute to severe right neural foraminal stenosis with impingement on the exi ting right C4 nerve root. There is a smaller left lateral disc bulge. In conjunction with facet arthr opathy, there is severe left neural foraminal stenosis with probable impingement on the exiting left C4 nerve root. C4-C5: A posterior disc osteophyte complex, eccentric to the left minimally effaces the ventral cord. The minimum AP canal diameter at this level measures 8.5 mm. There is a left lateral disc bulge. In conjunction with facet arthropathy, there is severe left neuroforaminal stenosis with impingement on the exiting left C5 nerve root. There is a small right lateral disc bulge. In conjunction with severe arthropathy, there is severe right neural foraminal stenosis with impingement on the exiting right C 5 nerve root. C5-C6: A posterior disc osteophyte complex abuts the ventral cord. There is a small left lateral disc bulge. In conjunction with uncovertebral and facet arthropathy, there is [id number] bilatera l neural foraminal stenosis. This may impinge on the exiting bilateral C6 nerve roots. C6-C7: A posterior disc osteophyte complex, eccentric to the left effaces the ventral cord. The minim um AP canal diameter at this level measures 6.5 mm. There is a large left lateral disc bulge, which c ontributes to severe left-sided neural foraminal stenosis in conjunction with facet arthropathy. This impinges on the exiting left C7 nerve root. Milder disc bulge is seen on the right. In conjunction w ith facet arthropathy, there is severe right-sided neural foraminal stenosis with probable impingemen t on the exiting right C7 nerve root. C7-T1: Unremarkable. T1-T2: Unremarkable. Soft tissues: The prevertebral and paraspinous soft tissues are normal as imaged. Brain parenchyma: The visualized brain parenchyma at the skull base is within normal limits. IMPRESSION: 1. Severe degenerative disc disease and multilevel cervical spondylosis with multilevel acquired comp romise of the central canal. See discussion for detailed level by level analysis. 2. The cervical cord is normal in morphology and signal intensity. 3. No destructive bony lesion is seen. Dictated: 10/01/2023 8:40 AM Transcribed: 10/01/2023 9:23 AM Sp [id number] [email or web address] Electronically signed by: Nathan Linn M.D. 10/01/2023 10:48 AM
--- NOTE | 2023-10-01 12:14 | Electrocardiogram Report ---
Test Reason : Blood Pressure : / mmHG Vent. Rate : 077 BPM Atrial Rate : 077 BPM P-R Int : 240 ms QRS Dur : 104 ms QT Int : 402 ms P-R-T Axes : -26 008 057 degrees QTc Int : 454 ms Sinus rhythm with 1st degree A-V block Possible Anterior infarct , age undetermined Abnormal ECG No previous ECGs available Confirmed by Bran Pradhan ([id number]) on 10/01/2023 12:14:24 PM Referred By: REFERRED SELF Confirmed By:Bran Pradhan
--- NOTE | 2023-10-01 13:08 | Hospitalist Progress Note ---
Date of Service October 01, 2023 Assessment & Plan (1) TIA (transient ischemic attack): Plan: 83-year-old male with PMH of HTN, HLD, PVD, T2DM on oral meds, CKD [baseline creatinine around 2], CML on Gleevec, prostate cancer status post surgery, ADHD, anxiety/mood disorder came in with complaint of transient slurred speech at home as per . Symptoms resolved at presentation. 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 He reports not feeling well for last couple of months. Reports feeling off/irritable/anger but denies depression or suicidal ideation. 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 Ritalin works better for his ADHD as per his . He is being managed for the following: TIA Near syncope/lightheadedness Presented with transient slurred speech/AMS, resolved by the time of presentation to ED. CT head, CTA head and neck unremarkable. MRI brain not suggestive of stroke but critical spinal stenosis noted. Telestroke evaluated, recommendations were ASA 300 mg OH daily until cleared by speech therapy, then baby aspirin daily, urine analysis, EEG if MRI brain negative, DVT prophylaxis, neurochecks, neurology consult. Continue with baby aspirin daily, atorvastatin daily. Patient denies any focal weakness of his arms or legs, denies any numbness or tingling at this time. Patient reports improvement in his slurred speech. But reports difficulty choosing words to express himself. Neurology consult, await recommendation. PT/OT, speech therapy. Orthostatic vital sent, continue telemetry monitoring and neurochecks, consider Zio patch monitoring upon discharge. EKG with sinus rhythm with first-degree heart block. Follow-up echo Left upper extremity radiculopathy Lightheadedness Patient reports continued sensation over left upper extremity in the recent past. Patient with complaints of lightheadedness and near passing out for last several weeks. MRI brain with critical cervical spinal canal stenosis. C-spine abnormal with severe neuroforaminal stenosis. Orthospine consult, await recommendation. PT/OT. H/O ADHD and anxiety/mood disorder: somewhat suboptimal control, likely d/t missed medications, patient verbalizing anger, irritability, dissociative symptoms. Psychiatry consult, await recs. New onset anemia possibly from recent epistaxis episodes. Will monitor HnH. Other chronic medical conditions: Continue with/resume home meds as and when able. Hypertension, fairly better controlled. Is held for permissive HTN, resume BP meds gradually in 24-48 hours. hyperlipidemia, on statin Rx PVD, carotid artery disease as per records DM2 on oral medications, suboptimal control as of recent hemoglobin A1c of 8.23 August 2023. F/u w/ endocrinology on DC. SSI while in hosp. CRI, creatinine at baseline CML on Gleevec prostate cancer status post surgery DVT prophylaxis. SCDs Re: Recent epistaxis episode Full code Patient Ms. Ranjana Peña, contact #[phone]. Admission and Anticipated Discharge Date Admission Date: September 30, 2023 Subjective Patient was seen and examined at bedside. Patient was sitting up in chair, on room air, resting comfortably, not in any acute distress. Patient reports getting his mood off/getting more angry which he likens to rage at sometimes/being volatile and "out of body" for several days to months. Reports improvement in his transient slurred speech/near passing out that was noted the evening prior to arrival. Denies any sore throat or cough or chest pain or palpitation. Physical Exam Physical Exam: GENERAL: Alert and oriented x3. NAD, on RA. slightly NOORVIK, appears anxious. HEENT: No pallor, no icterus. Pupils equal, round and reactive to light. Oral mucosa moist. NECK: No JVD, no neck masses. HEART: S1 and S2 heard. Regular rate and rhythm. No murmur, no gallop. RESPIRATORY SYSTEM: Normal AP diameter. No accessory muscle use. No wheezing, no crackles. ABDOMEN: Soft, bowel sounds present, nontender, no distention. CENTRAL NERVOUS SYSTEM: No facial droop. Speech is clear. Obeys simple commands. Moves extremities. power equal and symmetrical EXTREMITIES: No edema, no erythema seen. Results & Data Results & Data Vital Signs (Past 12 Hours) Vital Signs Temp Pulse Pulse Resp BP BP BP 10/01/23 12:39 36.7 C 67 12 128/64 10/01/23 07:45 36.6 C 61 13 118/74 10/01/23 07:23 61 10/01/23 01:50 64 10/01/23 01:47 36.5 C 66 16 127/71 10/01/23 01:22 10/01/23 01:00 66 16 139/71 Pulse Ox O2 Del Method 10/01/23 12:39 97 Room Air 10/01/23 07:45 96 Room Air 10/01/23 07:23 10/01/23 01:50 10/01/23 01:47 98 Room Air 10/01/23 01:22 Room Air 10/01/23 01:00 98 Room Air
--- NOTE | 2023-10-01 15:40 | XCELERA ---
[id number]
--- NOTE | 2023-10-01 16:11 | Psychiatric Consultation ---
Date of Consultation October 01, 2023 Impression / Recommendations Impression Pleasant 83 y/o man with ADHD, fairly mild OCD, and generalized anxiety disorder. One challenge in treating his ADHD is the extended nationwide shortage of various psychostimulants. Another is that some of those medications exacerbate his anxiety. He is currently taking sertraline at too low a dose to be likely to help OCD (which would typically take 200-400 mg/day), and that medication doesn't work well for JANIE. He's reported to have responded partially to venlafaxine XR at what was likely a fairly low dose (he says "200" mg, but never took more than a single capsule per day, so likely no more than 150 mg). I certainly have some thoughts about treatment options which I discussed with him and his , but emphasized that I do not think any such changes should be made during what's likely to be a very brief acute medical hospitalization because they would entail dose titrations and the need for monitoring responses and potential adverse effects. I think that pt would benefit from working with a psychiatric prescriber until an acceptable regimen is established. For now, pt should continue to lisdexamfetamine for which he filled a prescription on 09/20/2023 and the sertraline 100 mg daily. For OCD, the primary medication treatments are SSRIs and SNRIs, usually at doses higher (often double) than used for depression. SSRIs don't work well for JANIE, while SNRIs do work well for JANIE. This would suggest an SNRI might be preferable. His history of a positive, albeit partial, response to venlafaxine in the past would appear to support this. Duloxetine is more potent than venlafaxine and has fairly constant ratio of binding to serotonin and norepinephrine uptake sites, while venlafaxine primarily inhibits serotonin uptake at doses much below 225 mg/day. He might want to consider cross-titrating to duloxetine from sertraline, with an initial target of 60 mg/day. Alternatively, he could consider titrating sertraline to a dose of at least 200 mg/day. Neither of those changes should be made without a clear plan and close monitoring. ADHD usually responds well to stimulants, but stimulants present a range of challenges: there have been chronic shortages, making medication access un predictable; they have brief durations of action and cannot provide coverage of the time study engineer that adults need to be able to focus; they tend to exacerbate anxiety and irritability. Alternatives include: atomoxetine, a selective norepinephrine uptake inhibitor that requires dose titration and can be combined with sertraline but not with SNRIs and which provides 24-hour coverage; bupropion (off-label), which can be combined with SSRIs or SNRIs and provides 24-hour coverage, and which can be effective for Intermittent Explosive Disorder (which I'm certain pt does not have, but suggests it may reduce rather than exacerbate irritability); desipramine, a noradrenergic TCA which clearly can be effective for ADHD and could be combined with SSRIs but not SNRIs and should probably not be used in patients his age due to cardiotoxicity; and modafinil or armodafinil (off-label), non-stimulant wakefulness-promoting drugs for which significant evidence exists for efficacy for ADHD as well as depression and could be combined with antidepressants but for which cost can be an issue (they can be very affordable at certain pharmacies, but very expensive at others). For generalized anxiety disorder, benzodiazepines either have to be dosed many times per day or have long durations of action (clonazepam, alprazolam XR) to work well - PRN medications work well for episodic problems like panic, but not for chronic ones like JANIE. SSRIs work for a range of anxiety problems but usually not very well for JANIE. SNRIs do work well for JANIE. So does bupropion, but the need to take it TID and the delayed response limit its usefulness. To summarize, there are numerous options and I think he can have a much better treatment response than he's getting now, but there are quite a few considerations that must be balanced with each other in establishing a plan, then multiple steps to take in implementing such a plan. For now, he has access to lisdexamfetamine which helps for the ADHD and sertraline which could help a bit for the OCD and should continue those. Overall I spent a total of 122 minutes on the floor for this consultation assessment including review of chart records, review of test results, direct evaluation of the patient [id number], counseling the patient, medication education with the patient, risk assessment, discussion with the psychiatric liaison nurse, and documentation in the electronic health record. 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 PT should continue lisdexamfetamine and sertraline as currently prescribed on an outpatient basis. Psych History Identifying Data BALBINA TORRE is a 83-year-old M with a history of OCD and ADHD, admitted on for near syncope. Consult is by the hospitalist service for "anger, mood lability,dissociative feelings,hx adhd". Chief Complaint "Not doing too bad". History of Present Illness As part of a thorough review of the available medical records, I have read and confirmed the following note by the psychiatric liaison nurse: "Patient resting in bed A&Ox3, arrived soon after. Patient allowed to remain at bedside. Patient is pleasant and cooperative. He is a good historian however, prescribed medications and timeframe of missing doses d/t national shortage is confusing as he was also out of state at another home. Patient reports a history of OCD, more prominent in adolescents (including counting, arranging items in particular way ect) and also reports history of ADHD and anxiety. He describes classic ADHD symptoms and appears to be consistent since an early age. He reports history of anger/ "short fused", denies violence towards others. Patient has been treated for ADHD with stimulants for several years, most recently prescribed Vyvanse 70mg daily, prior to that was taking Ritalin 20mg TID. Patient is also prescribed Zoloft for anxiety and mild depression, as well as Trazodone and Melatonin for sleep. Patient reports some sadness, more so related to self devaluation and ruminating on past memories of wishing he would have said/done things differently. Patient denies SI or suicide attempts. Patient reports recent feelings of "out of body or like I'm in between being myself and out of my body" he also reports having repetitive thoughts involving numbers or sounds, for example: if using a number sequence to open cellphone, he continuously repeats the number in his head or if using the turn single in the car, hearing the sound over and over. He finds that music can help disrupt the rumination. He does not hear voices or have any hallucinations/delusional thinking. He dose note some mild memory issues or "losing train of thought", noted during assessment. (together for 32 years) is supportive and confirms history that is given. Patient reports PCP prescribes medications, he does not have outpatient psych providers. He is interested in outpatient psych provider information for follow-up outpatient. If no provider is established prior to discharge, liaison to get consent to send records to PCP for follow-up until psych provider is secured." Review of the medical record reveals no previous or outside psychiatric records. Pt. reports previous diagnosis of ADHD and JANIE. I met with pt and his . They endorse a psychiatric history nearly identical to that documented above, which I won't repeat. To summarize, he reports really clear obsessive and compulsive symptoms in late childhood/early adolescence that improved greatly by young adulthood but are still present to a degree. He has fairly well-established ADHD and has done fairly well with nearly every treatment he's used for that except for Adderall, which revved up his anxiety. He has only used stimulants, never any trials of non-stimulant medications. He has generalized anxiety symptoms that have not responded much to sertraline. A former trial of venlafaxine XR is reported by to have had a very noticeable benefit in terms of irritability. He occasionally has some dissociation when anxious. Pt denies any serious depression symptoms such as hopelessness, inappropriate guilt, or suicidal thoughts. Past Psychiatric History Previous Psych History: as above; appears never to have seen a psychiatrist Outpatient Services: PCP prescribes meds Previous Psych Admissions: none History of Previous Suicide Attempt: No Allergies Allergy/AdvReac Type Severity Reaction Status Date / Time codeine Allergy Swelling Verified 09/30/23 23:11 of Lip/Tongue/Throat Home Medications Medication Instructions Recorded Confirmed Type alogliptin 12.5 mg tablet 6.25 mg PO DAILY 03/24/22 09/30/23 History atorvastatin 80 mg tablet 80 mg PO DAILY 03/24/22 09/30/23 History chlorthalidone 50 mg tablet 50 mg PO DAILY 03/24/22 09/30/23 History empagliflozin 25 mg tablet 25 mg PO DAILY 03/24/22 09/30/23 History glimepiride 2 mg tablet 2 mg PO DAILY 03/24/22 09/30/23 History imatinib 400 mg tablet (Gleevec) 200 mg PO DAILY 03/24/22 09/30/23 History pioglitazone 30 mg tablet 30 mg PO DAILY 03/24/22 09/30/23 History allopurinol 100 mg tablet 100 mg PO DAILY 09/30/23 09/30/23 History alprazolam 0.5 mg tablet 0.5 mg PO HS PRN Anxiety 09/30/23 09/30/23 History dulaglutide 1.5 mg/0.5 mL 1.5 mg subcut WK 09/30/23 09/30/23 History subcutaneous pen injector (Trulicity) losartan 25 mg tablet 25 mg PO DAILY 09/30/23 09/30/23 History methylphenidate HCl 20 mg tablet 20 mg PO DAILY 09/30/23 10/01/23 History sertraline 100 mg tablet 50 - 100 mg PO HS 09/30/23 09/30/23 History trazodone 100 mg tablet 100 mg PO HS 09/30/23 09/30/23 History aspirin 81 mg tablet,delayed 81 mg PO DAILY #30 tabs 10/02/23 Rx release ezetimibe 10 mg tablet 10 mg PO QAM #30 tabs 10/02/23 Rx Patient History Medical History (Updated 10/02/23 @ 13:50 by Christos Fournier MD) JANIE (generalized anxiety disorder) ADHD Obsessive compulsive disorder Social History Smoking Status: Never smoker Hx Alcohol Use: No Hx Substance Use: No Preferred Language: Lebanese Communication Ability: Effective Implementation Architect Required: No Beliefs That Will Affect Care: None Current Living Situation: Spouse Other Information That Helps Us Care for You: No Feels Safe at Home: Yes Safety Concerns: Feels Safe At This Time Assistive Devices: CPAP Physical Exam Psychiatric: Orientation: alert, oriented to person, oriented to place, oriented to time and cooperative Apperance: appropriately dressed, appropriately groomed and appeared stated age Eye Contact: good eye contact Motor Behavior: no abnormal motor movements Speech: normal rate/rhythm/volume of speech Affect: + anxious affect Mood: + anxious mood Thought Process: + tangential thought process and thought association intact Thought Content: + cognitive distortions, reality based without delusions and + compulsions (mild); no hopelessness, no worthlessness and no guilt Suicidal Thoughts: denies suicidal thoughts, denies suicidal plan and denies suicidal intent Homicidal Thoughts: denies homicidal thoughts Hallucinations: no auditory hallucinations and no visual hallucinations Cognition: recent memory grossly intact, remote memory grossly intact and language grossly intact; + attention not intact (easily distracted) Estimated Intelligence: consistent with education level Insight: + fair insight Judgment: + fair judgement Vital Signs (Past 24 Hours): Last Vital Signs Temp 36.7 C 10/01/23 12:39 Pulse 67 10/01/23 12:39 Resp 12 10/01/23 12:39 BP 128/64 10/01/23 12:39 Pulse Ox 97 10/01/23 12:39 O2 Del Method Room Air 10/01/23 12:39 Review of Systems Psychiatric: + anxiety and + difficulty concentrating; no hopelessness, no suicidal ideation, no paranoia and no hallucinations Results & Data (PSY) Medications Administered Allopurinol (Allopurinol 100 Mg Tab) 100 mg PO DAILY KIRAN Stop: 10/31/23 08:59 Last Admin: 10/01/23 09:35 Dose: 100 mg Documented By: TATI Aspirin (Aspirin 81 Mg Ectab) 81 mg PO DAILY KIRAN Stop: 10/31/23 08:59 Last Admin: 10/01/23 09:35 Dose: 81 mg Documented By: TATI Atorvastatin Calcium (Atorvastatin 40 Mg Tab) 80 mg PO DAILY KIRAN Stop: 10/31/23 08:59 Last Admin: 10/01/23 09:35 Dose: 80 mg Documented By: TATI Potassium Chloride/Sodium Chloride (Normal Saline W/20 Meq Kcl) 20 meq in 1,000 mls @ 50 mls/hr IV .Q20H STA; Protocol Stop: 10/01/23 18:27 Last Admin: 09/30/23 22:54 Dose: 50 mls/hr Documented By: DEYVI Insulin Aspart (Insulin Aspart Per Unit Charge) 0 units SC ACHS KIRAN Stop: 10/31/23 01:41 Last Admin: 10/01/23 13:50 Dose: Not Given Documented By: Admin: 10/01/23 09:35 Dose: 3 units Documented By: TATI Co-signed By: TIFFANIE Admin: 10/01/23 02:18 Dose: Not Given Documented By: MARIO Methylphenidate HCl (Methylphenidate Hcl 10 Mg Tablet) 20 mg PO Q24H KIRAN Stop: 10/15/23 07:59 Last Admin: 10/01/23 09:41 Dose: 20 mg Documented By: TATI Miscellaneous (Gleevec~Order Awaiting Action) 1 each N/A QS [facility] Stop: 10/31/23 01:59 Last Admin: 10/01/23 13:55 Dose: Not Given Documented By: Admin: 10/01/23 09:36 Dose: Not Given Documented By: Admin: 10/01/23 02:24 Dose: Not Given Documented By: MARIO Sertraline HCl (Sertraline Hcl 100 Mg Tablet) 100 mg PO DAILY [facility] Stop: 10/31/23 08:59 Last Admin: 10/01/23 09:35 Dose: 100 mg Documented By: TATI Coding Level of Care Code 432[address] [facility] Intl Hosp Care Lvl 3 Diagnoses Mixed obsessional thoughts and acts F42.2 Obsessive-compulsive disorder type: mixed obsessional thoughts and acts Attention deficit hyperactivity disorder (ADHD), combined type F90.2 Attention deficit-hyperactivity disorder type: combined inattentive- hyperactive JANIE (generalized anxiety disorder) F41.1 Time Spent (min) 122
[2023-10-01] MEDS ORDERED: traZODone HCL 100 MG TAB PO SCH (21:00)
[2023-10-01] MEDS ORDERED: LANTUS PER UNIT CHARGE SQ SCH (21:00)
[2023-10-01] MEDS ORDERED: SERTRALINE HCL 50 MG TABLET PO SCH (21:00)
[2023-10-02 06:18] LABS: Hematocrit (blood only) 40.1 % (42.0-52.0); Hemoglobin 13.5 g/dl (14.0-18.0); Mean Corpuscular Hemoglobin 29.2 pg (25.0-34.0); Mean Corpuscular Hgb Conc 33.7 g/dL (32.0-36.0); Mean Corpuscular Volume 86.8 fL (80.0-100.0); Mean Platelet Volume 9.3 fL (9.4-12.4); Platelet Count 202 K/uL (130-400); RDW Coefficient of Variation 14.4 % (11.5-14.5); RDW Standard Deviation 45.8 fL (36.4-46.3); Red Blood Count 4.62 M/uL (4.70-6.10)
[2023-10-02 06:42] LABS: BUN Creatinine Ratio 18.8 (10-20); Creatinine Clr Calc Pharmacy 30.7 ml/min; Est GFR (African American) 33.4 ml/min; Est GFR (Non-African American) 28.8 ml/min; Magnesium 2.3 mg/dl (1.7-2.4); Phosphorus 2.8 mg/dl (2.5-4.9); Potassium 3.5 mmol/L (3.5-5.1)
--- NOTE | 2023-10-02 07:58 | Electroencephalogram ---
EEG Procedure Note Date of Service October 01, 2023 Start / End Times Start Time: 14:38 End Time: 14:58 Referring Physician Jarvis Gonzalez History An 83 year old male with near syncope. EEG performed for evaluation of epileptiform activity. Home Medication List Medication Instructions Recorded Confirmed Type alogliptin 12.5 mg tablet 6.25 mg PO DAILY 03/24/22 09/30/23 History atorvastatin 80 mg tablet 80 mg PO DAILY 03/24/22 09/30/23 History chlorthalidone 50 mg tablet 50 mg PO DAILY 03/24/22 09/30/23 History empagliflozin 25 mg tablet 25 mg PO DAILY 03/24/22 09/30/23 History glimepiride 2 mg tablet 2 mg PO DAILY 03/24/22 09/30/23 History imatinib 400 mg tablet (Gleevec) 200 mg PO DAILY 03/24/22 09/30/23 History pioglitazone 30 mg tablet 30 mg PO DAILY 03/24/22 09/30/23 History allopurinol 100 mg tablet 100 mg PO DAILY 09/30/23 09/30/23 History alprazolam 0.5 mg tablet 0.5 mg PO HS PRN Anxiety 09/30/23 09/30/23 History dulaglutide 1.5 mg/0.5 mL 1.5 mg subcut WK 09/30/23 09/30/23 History subcutaneous pen injector (Trulicity) losartan 25 mg tablet 25 mg PO DAILY 09/30/23 09/30/23 History methylphenidate HCl 20 mg tablet 20 mg PO DAILY 09/30/23 10/01/23 History sertraline 100 mg tablet 50 - 100 mg PO HS 09/30/23 09/30/23 History trazodone 100 mg tablet 100 mg PO HS 09/30/23 09/30/23 History Inpatient Medication List Allopurinol (Allopurinol 100 Mg Tab) 100 mg PO DAILY [facility] Stop: 10/31/23 08:59 Last Admin: 10/01/23 09:35 Dose: 100 mg Documented By: TATI Aspirin (Aspirin 81 Mg Ectab) 81 mg PO DAILY [facility] Stop: 10/31/23 08:59 Last Admin: 10/01/23 09:35 Dose: 81 mg Documented By: TATI Atorvastatin Calcium (Atorvastatin 40 Mg Tab) 80 mg PO DAILY [facility] Stop: 01/14/24 08:59 Last Admin: 10/01/23 09:35 Dose: 80 mg Documented By: TATI Insulin Aspart (Insulin Aspart Per Unit Charge) 0 units SC [facility] Stop: 10/31/23 01:41 Last Admin: 10/01/23 20:41 Dose: 1 units Documented By: MARIO Co-signed By: TIMOTHY Admin: 10/01/23 18:42 Dose: Not Given Documented By: Admin: 10/01/23 13:50 Dose: Not Given Documented By: Admin: 10/01/23 09:35 Dose: 3 units Documented By: TATI Co-signed By: TIFFANIE Admin: 10/01/23 02:18 Dose: Not Given Documented By: MARIO Insulin Glargine (Lantus Per Unit Charge) 5 units SQ [facility] Stop: 10/31/23 20:59 Last Admin: 10/01/23 20:41 Dose: 5 units Documented By: MARIO Co-signed By: TIMOTHY Methylphenidate HCl (Methylphenidate Hcl 10 Mg Tablet) 20 mg PO Q24H [facility] Stop: 10/15/23 07:59 Last Admin: 10/01/23 09:41 Dose: 20 mg Documented By: TATI Miscellaneous (Gleevec~Order Awaiting Action) 1 each N/A QS [facility] Stop: 10/31/23 01:59 Last Admin: 10/01/23 21:02 Dose: Not Given Documented By: Admin: 10/01/23 13:55 Dose: Not Given Documented By: Admin: 10/01/23 09:36 Dose: Not Given Documented By: Admin: 10/01/23 02:24 Dose: Not Given Documented By: MARIO Sertraline HCl (Sertraline Hcl 100 Mg Tablet) 100 mg PO DAILY [facility] Stop: 10/31/23 08:59 Last Admin: 10/01/23 09:35 Dose: 100 mg Documented By: TATI Trazodone HCl (Trazodone Hcl 100 Mg Tab) 100 mg PO [facility] Stop: 10/31/23 20:59 Last Admin: 10/01/23 20:41 Dose: 100 mg Documented By: MARIO Discontinued Medications Potassium Chloride/Sodium Chloride (Normal Saline W/20 Meq Kcl) 20 meq in 1,000 mls @ 50 mls/hr IV .Q20H STA; Protocol Stop: 10/01/23 18:27 Last Infusion: 10/01/23 16:25 Dose: Infused Documented By: Admin: 09/30/23 22:54 Dose: 50 mls/hr Documented By: DEYVI Insulin Glargine (Lantus Per Unit Charge) 5 units SQ [facility] Stop: 10/01/23 01:43 Last Admin: 10/01/23 02:20 Dose: 5 units Documented By: MARIO Co-signed By: TREVON Ioversol (Optiray 320 125ml) 119 ml IV ONCE ONE Stop: 09/30/23 20:23 Last Admin: 09/30/23 20:23 Dose: 119 ml Documented By: ANA Potassium Chloride (Potassium Chloride Crtab 20 Meq Tabcr) 40 meq PO NOW STA Stop: 09/30/23 22:24 Last Admin: 09/30/23 22:54 Dose: 40 meq Documented By: DEYVI Description This is a 21 electrode EEG with a single channel dedicated to limited EKG. The electrodes were placed in accordance with the International 10-20 system. Interpretation REPORT: At the onset of the EEG the patient is awake. The background is continuous and appears symmetric. The posterior dominant rhythm is not well seen. The background consist of low amplitude theta activity with some intermixed faster frequencies. No stage II sleep transients are seen. Photic simulation does not induce any abnormalities. Clinical Correlation IMPRESSION: This is an abnormal awake routine EEG due to generalized background slowing suggestive of non specific encephalopathy. No focal slowing or epileptiform activity is seen.
[2023-10-02] MEDS ORDERED: POTASSIUM CHLORIDE CRTAB 20 MEQ TABCR PO STA (08:09)
[2023-10-02] MEDS: ASPIRIN 81 MG ECTAB PO SCH (08:36)
[2023-10-02] MEDS: ATORVASTATIN 40 MG TAB PO SCH (08:36)
[2023-10-02] MEDS: METHYLPHENIDATE HCL 10 MG TABLET PO SCH (08:36)
[2023-10-02] MEDS: allopurinoL 100 MG TAB PO SCH (08:37)
[2023-10-02] MEDS: SERTRALINE HCL 100 MG TABLET PO SCH (08:37)
[2023-10-02] MEDS: INSULIN ASPART PER UNIT CHARGE SC SCH ×2 (09:43→14:04)
--- NOTE | 2023-10-02 10:15 | Neurology Consultation ---
Date of Consultation October 02, 2023 Assessment & Plan (1) Transient neurological symptoms: Plan 83 y/o male with history of HTN, DM, HLD, ADHD, and depression/anxiety that presented following an episode of transient speech impairment. Additionally, he has reported at least a year history of episodic left upper extremity numbness, lightheadedness upon standing, and dizziness with change in position of his head. Suspect that his symptoms may be multifactorial in origin. MRI brain with no acute intracranial findings. Unable to rule out TIA as cause of transient speech impairment. Unclear etiology of generalized weakness which preceded admission. He did have hyperglcyemia on presentation but laboratory studies have not been suggestive of infection. He has reported some concern regarding memory/cognition and examination reveals difficulty with calculation and mild difficulty with short term memory. He may benefit from additional outpatient testing including neuropsychology testing for evaluation of memory/cognition, EMG for upper extremity paresthesias, and ENT/neurology evaluation for dizziness given limitations of examination over video. Additionally, MRI c spine with multilevel degenerative disc disease and cervical spondylosis with canal stenosis and orthospine consult is pending. He endorses significant anxiety and depression with concerns regarding current medication regimen and psychiatry consultation is pending. 1. A1C, B1, B12, B6, vitamin D, folate, CRP' 2. Orthostatic Vitals 3. Neurochecks q4 hours 4. Single antiplatelet (aspirin 81 mg or clopidogrel 75 mg daily) 5. Continue atorvastatin 80 mg. LDL goal <70. If LDL remains > 70, can consider addition of zetia 6. Orthospine consult pending 7. ST/PT/OT 8. ENT outpatient 9. Neuropsychology testing outpatient 10. Neurology outpatient follow-up 11. Consider sleep medicine referral Telehealth Consultation Telehealth Information Telehealth Information: I performed this visit using a real-time telehealth connection between my location and the patients location ([facility]). After connecting through interactive tele-video, patient was identified by name and date of and/or wristband check.Patient (or authorized healthcare chain sales representative) was informed that this was a telemedicine visit and it was being conducted confidentially over secure lines. My office door was closed and no one else was present in the room with me.Patient (or authorized healthcare chain sales representative) provided consent to proceed with the visit, expressed an understanding of privacy and security of the telemedicine visit, and gave permission to have a hospital chain sales representative in the room in order to assist with the visit and to conduct portions of the visit, as needed. I informed the patient (or authorized healthcare chain sales representative) that I reviewed their record and presented the opportunity for them to ask any questions regarding the visit today. The patient agreed to participate. History of Present Illness Reason for Consultation: stroke like symptoms Requesting Physician: Dr. Julian Conley Attending Physician: Julian Conley MD History of Present Illness 83 y/o male that presented following an episode of speech impairment. He states that for the last few months he had not felt like the same person. He describes feeling disconnected and also reports significant anxiety. He states he sometimes doesn't feel like he is a part of something, like he is here but not here. He also reports significant anxiety which he states has bothered him for some time. He takes ritalin for ADHD but was out of it for a few weeks prior to presentation. He states that one week prior to coming in, he had an episode of numbness in his left arm. This involved his entire arm and lasted about 15 minutes. He has been having similar episodes lasting 5-10 minutes over at least the last year. He has never been able to identify any aggravating or alleviating factors. On the day of presentation, he states that he had trouble thinking of the right words and then when he spoke the words did not come out right. His states that when he finished eating, he came over to the couch and was holding his head. She asked him if he was okay but she was unable to understand him as his words were slurring. This lasted for five or ten minutes before resolving. However, when they were driving to the ED, he also gave his wrong driving instructions as he reported he did not recognize the area. His also states for the last couple of days, he seemed to be weak all over and shaky on his feet. He states that he has had lightheadedness/dizziness for a long time, which usually happens upon standing. If he moves his head to the side way really quickly, he may get dizziness. He denies room spinning sensation. He does not need assistance with any ADLs at home. He states that he is capable of doing anything but he mentally procrastinates alot. He also reports that he gives himself his own medications and generally does okay with the exception of sometimes not taking them on time. He and his both handle the financials, and he has not had difficulty. He states that he has also continued to share the cooking with his . He does state that he has had some concern regarding short term memory loss. He has continued to go to the grocery store but he repo rts there have been times while grocery shopping that he has felt confused and did not remember what he was looking for. His states that she has not had any concerns regarding his memory, with him only occasionally forgetting something. She states that he has always been unorganized. If he puts something down randomly, he may not remember where it is at. He states that he is not sure if his medication for anxiety/depression is working well. He denies any additional complaints. Allergies Allergy/AdvReac Type Severity Reaction Status Date / Time codeine Allergy Swelling Verified 09/30/23 23:11 of Lip/Tongue/Throat Home Medications Medication Instructions Recorded Confirmed Type alogliptin 12.5 mg tablet 6.25 mg PO DAILY 03/24/22 09/30/23 History atorvastatin 80 mg tablet 80 mg PO DAILY 03/24/22 09/30/23 History chlorthalidone 50 mg tablet 50 mg PO DAILY 03/24/22 09/30/23 History empagliflozin 25 mg tablet 25 mg PO DAILY 03/24/22 09/30/23 History glimepiride 2 mg tablet 2 mg PO DAILY 03/24/22 09/30/23 History imatinib 400 mg tablet (Gleevec) 200 mg PO DAILY 03/24/22 09/30/23 History pioglitazone 30 mg tablet 30 mg PO DAILY 03/24/22 09/30/23 History allopurinol 100 mg tablet 100 mg PO DAILY 09/30/23 09/30/23 History alprazolam 0.5 mg tablet 0.5 mg PO HS PRN Anxiety 09/30/23 09/30/23 History dulaglutide 1.5 mg/0.5 mL 1.5 mg subcut WK 09/30/23 09/30/23 History subcutaneous pen injector (Trulicity) losartan 25 mg tablet 25 mg PO DAILY 09/30/23 09/30/23 History methylphenidate HCl 20 mg tablet 20 mg PO DAILY 09/30/23 10/01/23 History sertraline 100 mg tablet 50 - 100 mg PO HS 09/30/23 09/30/23 History trazodone 100 mg tablet 100 mg PO HS 09/30/23 09/30/23 History Patient History Social History Smoking Status: Never smoker Hx Alcohol Use: No Hx Substance Use: No Preferred Language: Turkish Communication Ability: Effective It Technical Architect Required: No Beliefs That Will Affect Care: None Current Living Situation: Spouse Other Information That Helps Us Care for You: No Feels Safe at Home: Yes Safety Concerns: Feels Safe At This Time Assistive Devices: CPAP Review of Systems Negative except as listed in HPI Physical Exam AAO X to self, oriented, day, season, year, month, place. 2/3 recall. 0 calculation. No aphasia or dysarthria VFF EOMI, no nstagmus Facial sensations intact No facial asymmetry Tongue protrudes midline Motor: Moves all four extremities antigravity.No drift. No involuntary movements Sensation: Decreased sensation to light touch in lateral aspect of left lower extremity (chronic per patient), otherwise intact to light touch throughout. Cerebellar: FTN and HTS intact Results & Data Vital Signs (Past 12 Hours) Vital Signs Temp Pulse Pulse Resp BP BP Pulse Ox 10/02/23 08:10 36.7 C 62 16 147/73 H 98 10/02/23 07:11 66 10/02/23 04:13 36.6 C 60 20 117/69 95 10/01/23 23:19 36.7 C 65 18 105/61 95 O2 Del Method 10/02/23 08:10 Room Air 10/02/23 07:11 10/02/23 04:13 Room Air 10/01/23 23:19 Room Air Laboratory Results WBC 7.8, HGB 13.6, HCT 40.1, Plts 202, Na 137, Chloride 105, BUN 39, Creatinine 2.08, Glucose 103, POC glucose 140, Calcium 9.0, Phosphorous 2.8, Magnesium 2.3, LDL 76, TSH 2.221 Diagnostic Findings CTH:There is no hemorrhage, mass effect, or evidence of acute territorial ischemia by CT criteria. CTA head/neck:Unremarkable CT angiogram of the brain. Unremarkable CT angiogram of the neck. MRI brain:No evidence of acute intracranial pathology. Minimal nonspecific white matter changes. Critical spinal canal stenosis at C2-3 and C3-4. MRI C spine:1. Severe degenerative disc disease and multilevel cervical spondylosis with multilevel acquired compromise of the central canal. The cervical cord is normal in morphology and signal intensity. No destructive bony lesion is seen. EEG: This is an abnormal awake routine EEG due to generalized background slowing suggestive of non specific encephalopathy. No focal slowing or epileptiform activity is seen. TTE: EF 55-60%, borderline left atrial enlargement, mild to moderate MR, no ASD, PFO not assessed for
--- NOTE | 2023-10-02 10:31 | Orthopedic Consultation ---
Date of Consultation October 02, 2023 Assessment & Plan (1) Cervical stenosis of spinal canal: Assessment cervical spinal stenosis. Plan at this time I was unable to perform an adequate exam secondary to patient being preoccupied. Nevertheless review of his MRI does demonstrate severe multilevel spinal stenosis extending from C2 all the way down and involving C6-C7. At this point it does not appear he requires any emergent surgical intervention from a spine standpoint. The extent of his disease however would require tertiary care management if he would ultimately need surgery. History of Present Illness Reason for Consultation: Cervical spinal stenosis Attending Physician: Julian Conley MD History of Present Illness This is a 83-year-old male who presents the hospital with evidence of a TIA. Throughout his workup an MRI of the cervical spine was obtained demonstrating severe multilevel spinal stenosis with cord contour change. This morning patient is currently being interviewed by his neurologist. Reviewing the chart it sounds as though he does not have any gross upper or lower extremity strength deficits in the symptoms he did struggle with involving upper extremities or transient. Allergies Allergy/AdvReac Type Severity Reaction Status Date / Time codeine Allergy Swelling Verified 09/30/23 23:11 of Lip/Tongue/Throat Home Medications Medication Instructions Recorded Confirmed Type alogliptin 12.5 mg tablet 6.25 mg PO DAILY 03/24/22 09/30/23 History atorvastatin 80 mg tablet 80 mg PO DAILY 03/24/22 09/30/23 History chlorthalidone 50 mg tablet 50 mg PO DAILY 03/24/22 09/30/23 History empagliflozin 25 mg tablet 25 mg PO DAILY 03/24/22 09/30/23 History glimepiride 2 mg tablet 2 mg PO DAILY 03/24/22 09/30/23 History imatinib 400 mg tablet (Gleevec) 200 mg PO DAILY 03/24/22 09/30/23 History pioglitazone 30 mg tablet 30 mg PO DAILY 03/24/22 09/30/23 History allopurinol 100 mg tablet 100 mg PO DAILY 09/30/23 09/30/23 History alprazolam 0.5 mg tablet 0.5 mg PO HS PRN Anxiety 09/30/23 09/30/23 History dulaglutide 1.5 mg/0.5 mL 1.5 mg subcut WK 09/30/23 09/30/23 History subcutaneous pen injector ([facility]) losartan 25 mg tablet 25 mg PO DAILY 09/30/23 09/30/23 History methylphenidate HCl 20 mg tablet 20 mg PO DAILY 09/30/23 10/01/23 History sertraline 100 mg tablet 50 - 100 mg PO HS 09/30/23 09/30/23 History trazodone 100 mg tablet 100 mg PO HS 09/30/23 09/30/23 History Patient History Social History Smoking Status: Never smoker Hx Alcohol Use: No Hx Substance Use: No Preferred Language: Kittitian Communication Ability: Effective Medical Records Supervisor Required: No Beliefs That Will Affect Care: None Current Living Situation: Spouse Other Information That Helps Us Care for You: No Feels Safe at Home: Yes Safety Concerns: Feels Safe At This Time Assistive Devices: CPAP Physical Exam Physical Exam: Patient is currently sitting up in bed having an interview by way of telehealth with his neurologist. Results & Data Vital Signs (Past 12 Hours) Vital Signs Temp Pulse Pulse Resp BP BP Pulse Ox 10/02/23 08:10 36.7 C 62 16 147/73 H 98 10/02/23 07:11 66 10/02/23 04:13 36.6 C 60 20 117/69 95 10/01/23 23:19 36.7 C 65 18 105/61 95 O2 Del Method 10/02/23 08:10 Room Air 10/02/23 07:11 10/02/23 04:13 Room Air 10/01/23 23:19 Room Air
--- NOTE | 2023-10-02 12:35 | Communication Note ---
Date of Service: October 02, 2023 Neurology Update: Would also obtain zio patch at discharge.
[2023-10-02] MEDS ORDERED: STROKE PATIENT DISCHARGE STA (14:01)
--- NOTE | 2023-10-02 14:05 | Discharge Summary ---
Date of Service October 02, 2023 Admission HPI Per Admitting Provider History obtained from patient, family, and records. Medical history significant for hypertension, hyperlipidemia, PVD, DM2 on oral medications, CRI (baseline creatinine 2s), CML on Gleevec, prostate cancer status post surgery, ADHD, anxiety/mood disorder. Patient has not been feeling well the last couple of months. Feeling off, feelings of easy irritability and anger. Denies unusual depression or suicidality. Patient having feelings of "being an observer." Patient unable to take ADHD medication (Ritalin or Vyvanse) for about 3 weeks due to medication unavailability. Recently procured both medications the last couple of days. Patient restarted Ritalin 2 days ago. Ritalin works better for his ADHD as per . Patient with intermittent episodes of lightheadedness last couple of weeks. Feels like he is going to pass out. No headache, no chest pain, no SOB. Transient epistaxis episodes 2 days ago. Transient numbness of the left upper extremity noted 2 days ago as well. No neck pain complaints. Few hours ago, patient noted to have transient slurred speech at home as per . No previous episodes. Patient took aspirin at home. Symptoms currently resolved. 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 Admission Exam Per Admitting Provider GENERAL: Comfortable, slightly anxious, slightly hard of hearing, no respiratory distress SKIN: Normal color, warm HEENT: Partial alopecia, [place] palpebral conjunctivae, no ptosis, dry buccal mucosa NECK : Supple, no tenderness CHEST : CTA, no tenderness HEART : RRR, no obvious murmurs ABDOMEN: Some distention, nontender EXTREMITIES : No LE swelling/tenderness, no other conspicuous deformities noted NEUROLOGIC : Coherent, no facial asymmetry, slightly hard of hearing, no pronator drift, gait and stance not assessed Principal Diagnosis TIA Near syncope/lightheadedness Left upper extremity radiculopathy History of ADHD, anxiety/mood disorder New onset anemia, likely secondary to epistaxis Cervical neuroforaminal stenosis and degenerative disease Discharge Exam GENERAL: Alert and oriented x3. NAD, on RA. slightly [place]. HEENT: No pallor, no icterus. Pupils equal, round and reactive to light. Oral mucosa moist. NECK: No JVD, no neck masses. HEART: S1 and S2 heard. Regular rate and rhythm. No murmur, no gallop. RESPIRATORY SYSTEM: Normal AP diameter. No accessory muscle use. No wheezing, no crackles. ABDOMEN: Soft, bowel sounds present, nontender, no distention. CENTRAL NERVOUS SYSTEM: No facial droop. Speech is clear. Obeys simple commands. Moves extremities. power equal and symmetrical EXTREMITIES: No edema, no erythema seen. Discharge Data Allergies Allergy/AdvReac Type Severity Reaction Status Date / Time codeine Allergy Swelling Verified 09/30/23 23:11 of Lip/Tongue/Throat Consultations 09/30/23 22:06 ED Decision to Admit Stat 10/01/23 00:02 Consult Psychiatry Routine 10/01/23 11:21 Consult Orthopedic Spine Surgery Routine 10/01/23 12:44 Consult Neurology Routine Ordered Studies 09/30/23 20:12 CT angio head w con Stat CT angio neck with con Stat CT head/brain wo con Stat 10/01/23 01:32 MR brain wo con Urgent 10/01/23 06:08 MRI Cervical [MR cervical spine wo con] Urgent Hospital Course (1) TIA (transient ischemic attack): 83-year-old male with PMH of HTN, HLD, PVD, T2DM on oral meds, CKD [baseline creatinine around 2], CML on Gleevec, prostate cancer status post surgery, ADHD, anxiety/mood disorder came in with complaint of transient slurred speech at home as per . Symptoms resolved at presentation. Also he complained of intermittent near passing out for the last several weeks, had transient epistaxis 2 days ago COUNTRY DIRECTOR, had transient numbness of LUE 2 to 5 days ago COUNTRY DIRECTOR. He reports not feeling well for last couple of months. Reports feeling off/irritable/anger but denies depression or suicidal ideation. Of note, patient unable to take his ADHD medication [Ritalin or Vyvanse] for about 3 weeks due to medication unavailability, recently procured both medications the last couple of days COUNTRY DIRECTOR, and restarted Ritalin 2 days ago COUNTRY DIRECTOR. Ritalin works better for his ADHD as per his . He was managed for the following: TIA Near syncope/lightheadedness Presented with transient slurred speech/AMS, resolved by the time of presentation to ED. CT head, CTA head and neck unremarkable. MRI brain not suggestive of stroke but critical spinal stenosis noted. Telestroke evaluated, recommendations were ASA 300 mg ME daily until cleared by speech therapy, then baby aspirin daily, urine analysis, EEG if MRI brain negative, DVT prophylaxis, neurochecks, neurology consult. Continue with baby aspirin daily, atorvastatin daily. Ezetimibe added. Patient denies any focal weakness of his arms or legs, denies any numbness or tingling at this time. Patient reports improvement in his slurred speech. Reports feeling better and back to his baseline. Neurology consult, appreciate recommendation. PT/OT, speech therapy. Orthostatic vital +, slow transition during changing position, will need Zio patch monitoring upon discharge. Pt to f/u w/ pcp and neurology office on DC. Left upper extremity radiculopathy Lightheadedness Patient reports continued sensation over left upper extremity in the recent past. Patient with complaints of lightheadedness and near passing out for last several weeks. MRI brain with critical cervical spinal canal stenosis. C-spine abnormal with severe neuroforaminal stenosis. Orthospine consult, appreciate recommendation. Pt to f/u w/ orthospine dr on [place]. H/O ADHD and anxiety/mood disorder: somewhat suboptimal control, likely d/t missed medications, patient verbalizing anger, irritability, dissociative symptoms. d/w psy - pt needs OP psy eval for meds optimization/will discharge on current meds. New onset anemia possibly from recent epistaxis episodes. No epistaxis in hospital. HnH stable. Pt to establish and f/u w/ ENT on DC. Other chronic medical conditions: Continue with/resume home meds as and when able. Hypertension, fairly better controlled. Is held for permissive HTN, resume BP meds gradually in 24-48 hours. hyperlipidemia, on statin Rx PVD, carotid artery disease as per records DM2 on oral medications, suboptimal control as of recent hemoglobin A1c of 8.23 August 2023. F/u w/ endocrinology on DC. SSI while in hosp. CRI, creatinine at baseline CML on Gleevec prostate cancer status post surgery DVT prophylaxis. SCDs Re: Recent epistaxis episode Full code Patient Ms. Ranjana Peña, contact #[phone]. Patient is being discharged home with following instruction at the point of discharge: Follow-up with your primary care physician within a week time and likely you will need labs CBC/CMP/magnesium/phosphorus. You have been evaluated by psychiatry while inpatient, you will need to establish with psychiatry upon discharge and follow-up closely for ongoing management/optimization of your psychiatric medications. Establish and follow-up with ENT as an outpatient for your epistaxis. You will likely benefit from sleep study as an outpatient, coordinate with your PCP office to set up the test. You have been evaluated by neurology while inpatient for your TIA concern. Another lipid lowering medication Zetia is being added upon discharge. You will likely need neuropsychology testing as an outpatient. Follow-up with neurology in 2 to 4 weeks time upon discharge. You will need labs [B1 level, B12 level, B6 level, vitamin D level, folate level, CRP] - coordinate with your PCP office or neurology office to set up the tests. For your abnormal cervical spine MRI, you will need to follow-up with orthospine doctor as an outpatient, coordinate with the PCP office to set up the referral. Your orthostatic vitals are positive from sitting to standing position, recommend slow transition during change in positions from sitting to standing to avoid hypotension/lightheadedness/dizziness/fall. You can use thigh-high compression stockings during the day. You will need Zio patch monitoring upon discharge, coordinate with your PCP office to set up the test. Your A1c was elevated at 8.6 at presentation, you are on multiple diabetic medications already. You will need close follow-up with your airport skilled maintenance supervisor upon discharge for ongoing management of your diabetes/optimization of your diabetic medications. Please make sure that you are able to get your medications today by calling your pharmacy before you leave the hospital so that your treatment continuity is not broken. Home Health Attestation I certify that this patient is under my care and that I, or a physicians seismic survey assistant working with me, had a face to-face encounter that meets the replaced by [id number] encounter requirements with this patient. The encounter with the patient was in whole, or in part, for the following medical condition, which is the primary reason for home health care (list medical condition): I certify that, based on my findings, the following services are medically necessary home health services: My clinical findings support the need for the above services because: Further, I certify that my clinical findings support that this patient is homebound (i.e. absences from home require considerable and taxing effort and are for medical reasons or hoahaoism services or infrequently or of short duration when for other reasons) because: Certification for Home Health Services: Based on the above findings, I certify that this patient is confined to the home and needs intermittent penitentiary care, physical therapy and/or speech therapy or continues to need occupational therapy. The patient is under my care, and I have initiated the establishment of the plan of care. This patient will be followed by a physician who will periodically review the plan of care. Total Time Total Time Spent Total Time Spent (In Minutes): 45 Discharge Plan Discharge Items Patient Disposition: Home - Self-Care Reason For Visit: TIA Discharge Diagnosis: TIA Near syncope/lightheadedness Left upper extremity radiculopathy History of ADHD, anxiety/mood disorder New onset anemia, likely secondary to epistaxis Cervical neuroforaminal stenosis and degenerative disease Activity: Resume your previous activity Non-emergency contact: Primary Care Provider Call non-emergency contact if: you have any medication questions and your symptoms worsen Follow-up/Referrals: Dami Victoria PA-C [Primary Care Provider] - Diet: Heart Healthy and Low Sodium (2gm) Addtl Attending Provider Instructions: Follow-up with your primary care physician within a week time and likely you will need labs CBC/CMP/magnesium/phosphorus. You have been evaluated by psychiatry while inpatient, you will need to establish with psychiatry upon discharge and follow-up closely for ongoing management/optimization of your psychiatric medications. Establish and follow-up with ENT as an outpatient for your epistaxis. You will likely benefit from sleep study as an outpatient, coordinate with your PCP office to set up the test. You have been evaluated by neurology while inpatient for your TIA concern. Another lipid lowering medication Zetia is being added upon discharge. You will likely need neuropsychology testing as an outpatient. Follow-up with neurology in 2 to 4 weeks time upon discharge. You will need labs [B1 level, B12 level, B6 level, vitamin D level, folate level, CRP] - coordinate with your PCP office or neurology office to set up the tests. For your abnormal cervical spine MRI, you will need to follow-up with orthospine doctor as an outpatient, coordinate with the PCP office to set up the referral. Your orthostatic vitals are positive from sitting to standing position, recommend slow transition during change in positions from sitting to standing to avoid hypotension/lightheadedness/dizziness/fall. You can use thigh-high compression stockings during the day. You will need Zio patch monitoring upon discharge, coordinate with your PCP office to set up the test. Your A1c was elevated at 8.6 at presentation, you are on multiple diabetic medications already. You will need close follow-up with your airport skilled maintenance supervisor upon discharge for ongoing management of your diabetes/optimization of your diabetic medications. Please make sure that you are able to get your medications today by calling your pharmacy before you leave the hospital so that your treatment continuity is not broken. Pending Studies at Discharge: No Stand-Alone Forms: My [facility], Smoking Cessation, Medications to Prevent Stroke Medications and DC Order Prescriptions: New ezetimibe 10 mg Tablet 10 mg PO QAM Qty: 30 0RF aspirin 81 mg Tablet,Delayed Release (Dr/Ec) 81 mg PO DAILY Qty: 30 0RF Continued empagliflozin 25 mg tablet 25 mg PO DAILY glimepiride 2 mg tablet 2 mg PO DAILY pioglitazone 30 mg tablet 30 mg PO DAILY atorvastatin 80 mg tablet 80 mg PO DAILY alogliptin 12.5 mg tablet 6.25 mg PO DAILY imatinib [Gleevec] 400 mg tablet 200 mg PO DAILY Rx Instructions: 1/2 TABLET DAILY chlorthalidone 50 mg tablet 50 mg PO DAILY methylphenidate HCl 20 mg tablet 20 mg PO DAILY Rx Instructions: 09/30/23 PT REPORTS HE HAS NOT TAKEN ANY OF THIS MED IN APPROX ONE WEEK. Trulicity 1.5 mg/0.5 mL pen injector 1.5 mg SUBCUT WK Rx Instructions: TAKE THIS MED EVERY WEDNESDAY alprazolam 0.5 mg tablet 0.5 mg PO HS PRN (Reason: Anxiety) sertraline 100 mg tablet 50 - 100 mg PO HS trazodone 100 mg tablet 100 mg PO HS allopurinol 100 mg tablet 100 mg PO DAILY losartan 25 mg tablet 25 mg PO DAILY Discharge Orders: Discharge Order (Routine); Ordered 10/02/23 Ordered By: Julian Conley Admission Data Admit Date/Time: 10/01/23 13:31 Attending Provider: Julian Conley Admit Provider: Heriberto Lopez Primary Care Provider: Dami Victoria Other Providers: Salima Hollins; Mame Cox; Pamela Dillard; Juan Mauro; Christos Fournier; Heriberto Lopez; Charlie Quiros; Tello,Angi
[2023-10-03] MEDS ORDERED: EZETIMIBE 10 MG TAB PO SCH (09:00)
== END 2023-10-02 15:08 | disposition home or self-care (01) ==
LOC: 2N 19:33 → ED 19:33 → 2N 10-01 01:22